=== PATIENT | male | born 1940 | race Caucasian/White ===

== ENCOUNTER 2024-02-29 14:38 | Outpatient (CLI) | payer MEDICARE, SELFPAY ==
[2024-02-29 19:42] LABS: CRP 1.5 mg/dL (<1.0)
[2024-02-29 20:09] LABS: Thyroid Stimulating Hormone 0.903 uIU/mL (0.465-4.680)
[2024-02-29 20:46] LABS: Folic Acid > 20.0 ng/mL (2.76->20)
[2024-02-29 22:08] LABS: Erythrocyte Sedimentation Rate 17 mm/hr (0-20)
[2024-03-01 11:59] LABS: Creatine Kinase 151 U/L (55-170)
[2024-03-01 12:13] LABS: SS-A 2.7 POS AI (<1.0 NEG)
[2024-03-04 14:23] LABS: Testosterone Free 2 pg/mL (30.0-135.0); Testosterone Total 24 ng/dL (250-1100)
== END 2024-02-29 14:39 | disposition home or self-care (01) ==
PROVIDERS: PCP Internal Medicine; Visit Provider Internal Medicine
DX: G72.41 Inclusion body myositis [IBM] (principal); R53.1 Weakness; M35.03 Sjogren syndrome with myopathy
CPT/HCPCS: 36415; 82550; 82607; 82746; 84402; 84403; 84443; 85652; 86038; 86039; 86140; 86235

== ENCOUNTER 2024-02-29 14:53 | Outpatient (CLI) | payer MEDICARE, SELFPAY ==
--- NOTE | ~2024-02-29 | XR_ITS ---
EXAMINATION: XR chest 2V Exam Date/Time: 02/29/2024 15:07 CDT HISTORY: R06.89 - Other abnormalities of breathing Comparison: None. RESULT: Examination changed to stat status at approximately 8:20 PM. Lines, tubes, and devices: None. Lungs and pleura: Senescent/emphysematous change. Streaky bibasilar scar/atelectasis. Cardiomediastinal silhouette: Stable. Other: No acute upper abdominal finding. Moderate wedge compression deformity at T11. IMPRESSION: No acute cardiopulmonary process. Moderate wedge compression fracture at T11, of uncertain age. Reviewed, dictated and finalized at location K.
--- NOTE | ~2024-02-29 | XR_ITS ---
EXAM: XR lumbar spine min 4V DATE: 02/29/2024 15:59 HISTORY: M54.9 - Dorsalgia, unspecified . COMPARISON: None available. FINDINGS: Severe osteopenia. 5 nonrib-bearing lumbar-type vertebral bodies. Pedicles intact. Normal v ertebral body alignment. Moderate compression deformity at T11. Severe compression deformity at L1. M oderate height loss at L5 Mild compression deformity at L2 and L4. Multilevel degenerative disc disea se and facet arthropathy. Mild scoliosis. Multilevel concave endplate abnormalities as can be seen wi th osteoporosis. IMPRESSION: Osteoporosis. Lumbar scoliosis. Severe wedge compression deformity at L1. Moderate compre ssion deformity at L5. Mild anterior wedge compression deformities at L2 and L4. Reviewed, dictated and finalized at location K. IMPRESSION: Osteoporosis. Lumbar scoliosis. Severe wedge compression deformity at L1. Moderate compression deformity at L5. Mild anterior wedge compression de formities at L2 and L4.
== END 2024-02-29 14:54 ==
PROVIDERS: PCP Internal Medicine; Visit Provider Internal Medicine
DX: R06.89 Other abnormalities of breathing (principal); M54.9 Dorsalgia, unspecified; M81.0 Age-related osteoporosis without current pathological fracture; M41.9 Scoliosis, unspecified
CPT/HCPCS: 71046; 72110

== ENCOUNTER 2024-03-01 08:55 | Emergency (ER) | payer MEDICARE, SELFPAY ==
[2024-03-01] VITALS (22 sets, daily range): BP systolic 128–143; BP diastolic 73–92; PULSE 76–79; RESP 16; TEMP 36.7–36.9; O2SAT 93–98
--- NOTE | ~2024-03-01 | XR_ITS ---
XR elbow LT min 3V 03/01/2024 10:43 INDICATION: Left elbow pain after injury PROCEDURE: 4 views left elbow COMPARISON: No prior studies for comparison. FINDINGS: Fracture, dislocation or subluxation is not identified. No significant joint effusion. Oste openia. The soft tissues appear within normal limits. No foreign bodies are identified. IMPRESSION: 1: NO ACUTE BONE OR JOINT ABNORMALITY IDENTIFIED. Reviewed, dictated and finalized at location B.
--- NOTE | ~2024-03-01 | XR_ITS ---
EXAMINATION: XR ribs RT 2V w CXR 2V DATE: 03/01/2024 10:43 INDICATION: Right rib pain post fall TECHNIQUE: AP and lateral views of the chest and 3 views of the right ribs were obtained. COMPARISON: Chest radiograph dated 02/29/2024 FINDINGS: There are several anterior right-sided rib fractures which appears chronic at the fifth rib and age-i ndeterminate but likely chronic at the adjacent right sixth and seventh ribs. Callus formation about an additional chronic fracture of the lateral right 11th rib. No definitively acute rib fractures mohsen ntified. No focal airspace opacities, pulmonary edema, pleural effusion or pneumothorax. Heart size i s within normal limits for AP technique with tortuous thoracic aorta. Compression fracture at T11 com pression fracture with 50% anterior vertebral body height loss and a few additional compression fract ures in the lumbar spine which appeared most likely chronic on prior CT. IMPRESSION: 1. A few old right-sided rib fractures and age-indeterminate but likely chronic fractures of the ante rior right sixth and seventh ribs. No pneumothorax or other acute cardiopulmonary disease. 2. Likely chronic compression fractures at T11 and a few levels in the lumbar spine. See separate lum bar spine CT report for further detail. Reviewed, dictated and finalized at location A. IMPRESSION: 1. A few old right-sided rib fractures and age-indeterminate but likely chronic fractures of the anterior right sixth and seventh ribs. No pneumothorax or oth er acute cardiopulmonary disease. 2. Likely chronic compression fractures at T11 and a few levels in the lumbar s pine. See separate lumbar spine CT report for further detail.
--- NOTE | ~2024-03-01 | CT_ITS ---
CT lumbar spine wo con Ordering provider: Siomara Jaffe PA-C History: 83 years Male with . low back pain, fall . Comparison: None. Technique: CT lumbar spine without contrast. radiation reduction technique utilized. FINDINGS: VERTEBRAE: Osteopenia of the bones. Multilevel compression fractures seen involving all of the verteb rita with maximum changes seen at the level of L1 and L5. Compression fracture of T11.. Bilateral facet joint disease of the level of L3-L4 and L4-L5. DISC SPACES: Well maintained. Evaluation of the neural foramina and spinal canal are limited without intrathecal contrast. Facet degenerative disease at the level of L4-L5 and L5-S1 T12-L1: No stenosis. L1-L2: No stenosis. L2-L3: No stenosis. L3-L4: No stenosis. Mild disc bulge. L4-L5: No stenosis. Mild disc bulge with osteophytes with narrowing of the left foramen. L5-S1: No stenosis. PARASPINOUS SOFT TISSUES: Mild atheromatous disease of the abdominal aorta. Bilateral atelectatic changes versus pneumonia with minimal left pleural effusion. Healing left ninth, 10 and the 11th. Left sacroiliitis. IMPRESSION: Multilevel degenerative disc disease with disc bulges at the level of L3-L4 and L4-L5. Multilevel compression fracture most likely chronic. Reviewed, dictated and finalized at location A.
--- NOTE | ~2024-03-01 | CT_ITS ---
CT head without contrast Indication: Injury Technique: Serial scans were obtained through the brain without the administration of contrast. Dose reduction technique was used on this scan by utilizing automated exposure control and iterative recon struction technique. The dose-length product (DLP) was 681.00 mGy-cm. Findings: There is no evidence of intracranial hemorrhage, mass lesion, or acute infarct. The ventri cles and subarachnoid spaces are dilated, consistent with moderate to severe atrophy. Low attenuatio n regions are seen within the periventricular white matter bilaterally, likely representing changes f rom chronic microvascular ischemic disease. There is no evidence of edema, mass effect or midline sh ift. The visualized paranasal sinuses and mastoid air cells are clear. Impression: No intracranial hemorrhage, mass, or acute infarct. Atrophy and chronic white matter changes, as above. Reviewed, dictated and finalized at location . Impression: No intracranial hemorrhage, mass, or acute infarct. Atrophy and chronic white matter changes, as above.
--- NOTE | ~2024-03-01 | XR_ITS ---
EXAMINATION: XR wrist LT min 3V DATE: 03/01/2024 10:43 INDICATION: Left wrist pain post fall TECHNIQUE: Posteroanterior, ulnar deviation, oblique, and lateral views of the left wrist were obtain ed. COMPARISON: none FINDINGS: Diffuse osteopenia. Old fracture deformities at the left fourth and fifth metacarpal diaphyses with s ome residual palmar angulation. No acute fractures. 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 There is some chondrocalcinosis at the ulnar side of the wrist joint. There are couple small loose osteochondral bodies in the regio n of the pisotriquetral recess. There is soft tissue swelling at the ulnar side of the wrist. IMPRESSION: 1. Old healed fourth and fifth metacarpal fracture deformities. No acute osseous abnormality. 2. Polyarticular osteoarthritis at the left hand and wrist, severe at the triscaphe joint. Reviewed, dictated and finalized at location A. IMPRESSION: 1. Old healed fourth and fifth metacarpal fracture deformities. No acute osseou s abnormality. 2. Polyarticular osteoarthritis at the left hand and wrist, severe at the trisc aphe joint.
--- NOTE | ~2024-03-01 | CT_ITS ---
CT facial & cervical spine wo Ordering provider: Siomara Jaffe PA-C History: . fall, head injury . Comparison: None. Technique: Thin slice axial CT of the facial bones and cervical spine was performed without contrast. Coronal and sagittal reformatted images were also obtained. Radiation reduction technique utilized. FINDINGS: PARANASAL SINUSES: Mucosal thickening of both maxillary sinuses. BONES: No facial fracture including no nasal bone fracture. Osteoarthritic changes of the medial atlantoaxial joint. Multilevel degenerative changes of the spine . ORBITS AND SUPERFICIAL SOFT TISSUES: The optic globes and orbits are normal. Soft tissue swelling ove r the right orbit is noted suggestive of hematoma. VISUALIZED MASTOIDS: Well aerated. LIMITED VISUALIZED BRAIN PARENCHYMA: Normal. Bilateral narrowing of the intervertebral foramen at the level of C4-C5, C5-C6 and C6-C7 with root co mpression IMPRESSION: No facial fracture. No fractures seen in the visualized portion of the spine. Soft tissue swelling over the right orbit with no definitive orbital injury seen. Multilevel degenerative disc disease with intervertebral foraminal narrowing. Reviewed, dictated and finalized at location A. IMPRESSION: No facial fracture. No fractures seen in the visualized portion of the spine. Soft tissue swelling over the right orbit with no definitive orbital injury see n. Multilevel degenerative disc disease with intervertebral foraminal narrowing.
--- NOTE | ~2024-03-01 | XR_ITS ---
SINGLE AP VIEW PELVIS Ordering provider: Siomara Jaffe PA-C History: . fall/RIGHT LATERAL RIB PAIN . Comparison: None. FINDINGS: BONES: No acute fracture or dislocation. Status post fixation of the left hip HIP JOINT SPACES: Bilateral hip joint narrowing. Bony fragment or calcification is seen in the area o f the right hip which may be synovial chondromatosis. Chip fracture is less likely. SACROILIAC JOINT SPACES/LUMBAR SPINE: The sacroiliac joint spaces are normal. Mild degenerative gibson es of the visualized lower lumbar spine. PUBIC SYMPHYSIS: Normal. SOFT TISSUES: Normal. IMPRESSION: No definite acute osseous abnormality pelvis. Reviewed, dictated and finalized at location A.
--- NOTE | 2024-03-01 09:29 | ED.FALL ---
HPI - Fall General Chief Complaint: Fall Stated Complaint: head injury Time Seen by Provider: 03/01/24 09:10 Source: patient and EMS Mode of arrival: EMS Limitations: no limitations History of Present Illness HPI Narrative: This is an 83-year-old male that presents to the emergency department after a fall today with head injury. Reports he got his wheel caught on the sidewalk and fell off of the curb. He fell out of his wheelchair and hit his head. He did not lose consciousness. Reports contusion to the right forehead. Left wrist pain, right sided rib pain, and low back pain. He is not on any anticoagulation. Patient reports he is up to date on tetanus vaccination. Denies vomiting, focal numbness or weakness. Related Data Home Medications Medication Instructions Recorded Confirmed No Home Medications 02/29/24 02/29/24 Allergies Allergy/AdvReac Type Severity Reaction Status Date / Time No Known Allergies Allergy Verified 02/29/24 13:31 Review of Systems Review of Systems: CONSTITUTIONAL: Denies fever EYES: Denies new visual changes CARDIOVASCULAR: Denies chest pain RESPIRATORY: Denies dyspnea. GASTROINTESTINAL: Denies vomiting MUSCULOSKELETAL: Reports back pain, joint pain, and myalgia. NEUROLOGIC: Denies numbness, or weakness. 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 HEAD: Normocephalic. Contusion to the right forehead with superficial skin abrasion EYES: EOMI. Pupil on the right is reactive to light and appears normal. Left pupil is irregular with blood in the anterior chamber ENT: Nares clear, no rhinorrhea or epistaxis. Mucous membranes moist. Oropharynx without tonsillar hypertrophy exudate or other lesions. Bilateral TMs pearly talley non-bulging NECK: Supple. No adenopathy or masses. No midline spinal tenderness CHEST: Clear to auscultation. No respiratory distress. No wheezes rales or rhonchi HEART: Regular rate and rhythm. No murmur heard. Normal peripheral pulses. BACK: No midline thoracic spine tenderness. Tender to palpation of midline lower lumbar spine EXTREMITIES: Normal range of motion. No edema or obvious deformity. SKIN: Warm, dry, no rash. NEURO: No focal deficits. Alert and oriented x3. CN II-XII grossly intact PSYCH: Normal mood and affect Course Course Emergency Course: Patient and family updated on workup and agree with plan of care Consultations Consultation #1: Spoke with Dr. Ho about patient and workup. His platelets are actually improved. Will continue to follow-up on his blood work outpatient Date: 03/01/24 Vital Signs Vital signs: Vital Signs Temperature 98.5 F 03/01/24 08:56 Pulse Rate 79 03/01/24 08:56 Respiratory Rate 16 03/01/24 08:56 Blood Pressure 130/92 H 03/01/24 08:56 Pulse Oximetry 96 03/01/24 08:56 Oxygen Delivery Room Air 03/01/24 08:56 Temperature 98.0 F 03/01/24 10:51 Pulse Rate 76 03/01/24 10:51 Respiratory Rate 16 03/01/24 10:51 Blood Pressure 143/88 H 03/01/24 11:16 Pulse Oximetry 98 03/01/24 12:00 Oxygen Delivery Room Air 03/01/24 08:56 Procedures Laceration Laceration 1: Date: 03/01/24 Time: 09:51 Site: face Side (If applicable): right Description: flap Depth: simple, single layer Pre-repair: irrigated ====== Skin Level ====== Skin layer closed with: dermabond and steri strips
[2024-03-01 10:05] LABS: Basophils Percent Auto 0.9 % (0.2-1.2); Eosinophils Absolute Auto 0.1 K/mm3 (0-0.3); Eosinophils Percent Auto 2.3 % (0-4.4); Hematocrit 39.6 % (42.0-52.0); Immature Granulocyte Absolute 0.03 K/mm3 (0.00-0.031); Immature Granulocyte Percent A 0.9 % (0-0.5); Immature Platelet Fraction Pct 13.1 % (0.9-11.2); Lymphocytes Absolute Auto 0.93 K/mm3 (0.9-3.2); Lymphocytes Percent Auto 26.6 % (18.3-44.2); Mean Corpuscular HGB Conc 32.8 g/dl (32-36); Mean Corpuscular Volume 106.7 fl (80-100); Mean Platelet Volume 13.6 fl (7.4-10.4); Monocytes Absolute Auto 0.5 K/mm3 (0.1-0.6); Monocytes Percent Auto 14.3 % (2.6-8.5); Neutrophils Absolute Auto 1.9 K/mm3 (1.3-6.7); Red Blood Count 3.71 M/mm3 (4.6-6.20); Red Cell Distribution Width 14.7 % (11.5-14.5); White Blood Count 3.5 K/mm3 (4.5-10.0)
[2024-03-01 10:17] LABS: Alanine Aminotransferase 73 U/L (6-50); Albumin Level 2.6 g/dL (3.5-5.1); Alkaline Phosphatase 260 U/L (38-126); Anion Gap 2 mmol/L (4-12); Aspartate Amino Transferase 86 U/L (17-59); Bilirubin,Total 1.4 mg/dL (0.2-1.3); Blood Urea Nitrogen 10 mg/dL (9-20); Calcium 8.5 mg/dL (8.4-10.2); Carbon Dioxide 24 mmol/L (22-30); Chloride 108 mmol/L (98-107); Estimated CRCL calculation 119 ml/min; Estimated Glomerular Filt Rate > 60; Glucose 114 mg/dL (65-110); Potassium 3.9 mmol/L (3.4-5.0); Sodium 134 mmol/L (137-145)
[2024-03-01 10:31] LABS: Platelet Count Result 19 k/mm3 (150-375)
[2024-03-01 10:32] LABS: INR 1.1; Prothrombin Time 14.1 Seconds (11.1-14.7)
[2024-03-01 10:35] LABS: Anisocytosis 1+; Platelet Estimate Decreased (Adequate); Poikilocytosis 1+; Schistocytes None Seen
[2024-03-01] MEDS: ACETAMINOPHEN 500 MG TABLET 1000 MG PO (11:41)
== END 2024-03-01 13:07 ==
PROVIDERS: Emergency Provider Physician Assistant; PCP Internal Medicine
DX: S01.81XA Laceration without foreign body of other part of head, initial encounter (principal); S20.211A Contusion of right front wall of thorax, initial encounter; M35.03 Sjogren syndrome with myopathy; M19.032 Primary osteoarthritis, left wrist; M19.042 Primary osteoarthritis, left hand; M51.36 Other intervertebral disc degeneration, lumbar region; M48.56XA Collapsed vertebra, not elsewhere classified, lumbar region, initial encounter for fracture; M48.54XA Collapsed vertebra, not elsewhere classified, thoracic region, initial encounter for fracture; W05.0XXA Fall from non-moving wheelchair, initial encounter
CPT/HCPCS: 12011; 36415; 70450; 70486; 71046; 71100; 72125; 72131; 72170; 73080; 73110; 80053; 85025; 85055; 85610; 85730; 99284; A9270

== ENCOUNTER 2024-03-30 13:18 | Outpatient (CLI) | payer MEDICARE, SELFPAY | END 2024-03-30 13:19 | disposition home or self-care (01) | LOC: ANHAUDASC 13:19 | PROVIDERS: PCP Internal Medicine; Visit Provider Internal Medicine | DX: Z01.10 Encounter for examination of ears and hearing without abnormal findings (principal); H90.3 Sensorineural hearing loss, bilateral | CPT/HCPCS: 92557; 92567 ==

== ENCOUNTER 2024-04-05 23:06 | Inpatient (IN) | payer MEDICARE, SELFPAY ==
--- NOTE | ~2024-04-05 | XR_ITS ---
MODIFIED ESOPHAGRAM HISTORY: Dysphagia. TECHNIQUE: Modified barium esophagram was performed on 04/06/2024. I administered fluoroscopy and perf ormed the exam with speech pathologist. Patient was seated for lateral fluoroscopic imaging for danielle stion of thin liquids, pudding, solids and quantified amounts, followed by thin liquids in uncontroll ed amounts. This was recorded on tape. A single fluoroscopic spot image was also recorded. The DAP fo r this procedure was 1.03 Gycm2. The amount of fluoroscopy time used during this procedure was 1.6 mi nutes. FINDINGS: Oral stage: Adequate function. Pharyngeal stage: Mild pharyngeal dysphagia with reduced laryngeal elevation and small amount of claudine ngeal penetration without aspiration with uncontrolled thin liquids. Cervical/esophageal stage: Adequate function. IMPRESSION: Mild pharyngeal dysphagia with small amount of laryngeal penetration without aspiration w ith uncontrolled thin liquids. Please correlate with speech pathologist findings and specific feedin g recommendations. Reviewed, dictated and finalized at location A. IMPRESSION: Mild pharyngeal dysphagia with small amount of laryngeal penetratio n without aspiration with uncontrolled thin liquids. Please correlate with spe ech pathologist findings and specific feeding recommendations.
--- NOTE | ~2024-04-05 | CT_ITS ---
Clinical Indication: Pulmonary embolus CT Scan of the Chest with Contrast: Technique: Contiguous sections were acquired throughout the chest after intravenous administration of 100 cc of Omnipaque 350. Dose reduction technique was used on this scan by utilizing automated expos ure control and iterative reconstruction technique. The dose-length product (DLP) was 1152.79 mGy-cm. Findings: There is no evidence of any significant mediastinal, hilar or axillary lymphadenopathy. There is no f illing defect in the pulmonary arterial tree to suggest pulmonary embolus. There is no evidence of ao rtic dissection or aneurysm. No pericardial effusion. Small bilateral pleural effusions are present, with mild bibasilar atelectatic change. Images through the upper abdomen reveal no abnormalities. There are compression fractures of T8, L1, and L3, and probably L4. Impression: No evidence of pulmonary embolus, aortic dissection, or aortic aneurysm. Small bilateral pleural effusions with bibasilar atelectatic change. Compression fractures, as above, age-indeterminate, likely chronic. Reviewed, dictated and finalized at [facility]. Impression: No evidence of pulmonary embolus, aortic dissection, or aortic aneurysm. Small bilateral pleural effusions with bibasilar atelectatic change. Compression fractures, as above, age-indeterminate, likely chronic.
--- NOTE | ~2024-04-05 | US_ITS ---
Right upper quadrant ABDOMINAL ULTRASOUND Ordering provider: Lul Zamudio MD History: . elevated LFTs . Comparison: None. FINDINGS: LIVER: Normal size with slightly heterogenous echotexture. Minimal lobulation of the liver surface is possible. Cirrhotic changes cannot be excluded No focal hepatic lesions or perihepatic fluid collect ions are identified. GALLBLADDER: Unremarkable. No evidence for stones, sludge, gallbladder wall thickening or pericholecy stic fluid collections. The wall thickness is 0.3 cm. A negative sonographic Cohen's sign was noted. BILIARY DUCTS: No evidence for intra or extrahepatic biliary dilation. Common bile duct measures 4 mm in diameter which is within normal limits. PANCREAS: Not well demonstrated. UPPER ABDOMINAL AORTA: Normal in caliber. Measures 1.7 cm. IVC: Patent. FREE FLUID: None. IMPRESSION: slightly heterogenous echotexture of the liver. Minimal lobulation of the liver surface is possible. Cirrhotic changes cannot be excluded. Otherwise, Unremarkable complete ultrasound of the right upper quadrant. Reviewed, dictated and finalized at location A. IMPRESSION: slightly heterogenous echotexture of the liver. Minimal lobulation of the live r surface is possible. Cirrhotic changes cannot be excluded. Otherwise, Unremar kable complete ultrasound of the right upper quadrant.
[2024-04-05 23:04] VITALS: BP 124/82; PULSE 76; RESP 15; TEMP 36.6; O2SAT 94
--- NOTE | 2024-04-05 23:09 | ECG_ITS ---
Test Date: 2024-04-05 23:09:15 Measurements Intervals [place] Rate: 76 P: 47 NV: 225 QRS: -28 QRSD: 130 T: 24 QT: 400 QTc: 450 Interpretive Statements SINUS RHYTHM WITH OCCASIONAL VENTRICULAR PREMATURE COMPLEXES INTRAVENTRICULAR CONDUCTION DELAY CANNOT R/O SEPTAL INFARCT, AGE INDETERMINATE ABNORMAL ECG No previous ECG available for comparison Electronically Signed On 04-06-2024 17:29:31 CDT by Robert Bsihop D.O.
--- NOTE | 2024-04-05 23:18 | PC.NURSE ---
Called [facility] at 2301. Called [facility] at 2302. Called [facility] at 2305. Jeovanny called back at 2304. Cary called back at 2305. Nya called back at 2308. Ofeliancel stemi alert at 2310. Cancel vides ems at 2316.
[2024-04-05 23:37] LABS: Basophils Percent Auto 0.7 % (0.2-1.2); Eosinophils Absolute Auto 0.1 K/mm3 (0-0.3); Eosinophils Percent Auto 1.8 % (0-4.4); Hematocrit 42.9 % (42.0-52.0); Hemoglobin 14.5 g/dL (14.0-18.0); Immature Granulocyte Absolute 0.04 K/mm3 (0.00-0.031); Immature Granulocyte Percent A 0.9 % (0-0.5); Immature Platelet Fraction Pct 11.2 % (0.9-11.2); Lymphocytes Absolute Auto 1.04 K/mm3 (0.9-3.2); Lymphocytes Percent Auto 23.4 % (18.3-44.2); Mean Corpuscular HGB Conc 33.8 g/dl (32-36); Mean Corpuscular Hemoglobin 35.1 pg (26-34); Mean Corpuscular Volume 103.9 fl (80-100); Mean Platelet Volume 11.9 fl (7.4-10.4); Monocytes Absolute Auto 0.7 K/mm3 (0.1-0.6); Monocytes Percent Auto 15.3 % (2.6-8.5); Neutrophils Absolute Auto 2.6 K/mm3 (1.3-6.7); Neutrophils Percent Auto 57.9 % (45.5-73.1); Platelet Count Result 26 k/mm3 (150-375); Red Blood Count 4.13 M/mm3 (4.6-6.20); Red Cell Distribution Width 16.6 % (11.5-14.5); White Blood Count 4.4 K/mm3 (4.5-10.0)
[2024-04-05 23:45] LABS: Lactic Acid Reflex 1.5 mmol/L (0.7-2.0)
[2024-04-05 23:46] LABS: Alanine Aminotransferase 74 U/L (6-50); Albumin Level 2.4 g/dL (3.5-5.1); Alkaline Phosphatase 232 U/L (38-126); Anion Gap 5 mmol/L (4-12); Aspartate Amino Transferase 68 U/L (17-59); Bilirubin,Total 1.4 mg/dL (0.2-1.3); Blood Urea Nitrogen 11 mg/dL (9-20); Calcium 8.4 mg/dL (8.4-10.2); Carbon Dioxide 20 mmol/L (22-30); Chloride 107 mmol/L (98-107); Estimated CRCL calculation 119 ml/min; Estimated Glomerular Filt Rate > 60; Glucose 105 mg/dL (65-110); Lipase 38 U/L (23-300); Magnesium 1.8 mg/dL (1.6-2.3); Potassium 3.7 mmol/L (3.4-5.0); Sodium 132 mmol/L (137-145)
[2024-04-05 23:47] LABS: Platelet Estimate Decreased (Adequate)
[2024-04-05 23:48] LABS: Ovalocytes 1+; Poikilocytosis 1+; Schistocytes None Seen
[2024-04-05 23:49] LABS: INR 1.1; Prothrombin Time 14.9 Seconds (11.1-14.7)
[2024-04-05 23:50] LABS: Partial Thromboplastin Time 31.8 Seconds (22.3-36.8)
[2024-04-05 23:57] LABS: NT Pro B Type Natriuretic Pept 88 pg/mL (19.9-100); Troponin I 0.031 ng/mL (0.000-0.034)
[2024-04-05 23:59] LABS: Troponin I 0.031 ng/mL (0.000-0.034)
[2024-04-06] VITALS (23 sets, daily range): BP systolic 110–148; BP diastolic 62–72; PULSE 76–103; RESP 18–28; TEMP 36.1–36.9; O2SAT 91–95; BMI 26.0
[2024-04-06 00:11] LABS: Influenza A QL RT-PCR Negative (Negative); Influenza B QL RT-PCR Negative (Negative); RSV RNA, RT-PCR Negative (Negative); SARS-CoV-2 RNA PCR Negative (Negative)
[2024-04-06 00:24] LABS: Procalcitonin 0.2 ng/mL
[2024-04-06 01:58] LABS: Appearance Urine Clear (Clear); Bilirubin Urine Negative (Negative); Blood Urine Negative (Negative); Color Urine Yellow (Yellow); Glucose Urine UA Negative (Negative); Ketones Urine Negative (Negative); Leukocyte Esterase Ur Negative LEU/UL (Negative); Nitrate Urine Negative (Negative); Protein Urine Negative (Negative); Specific Grav Ur 1.036 (1.001-1.035); pH Urine 6.5 (5.0-9.0)
[2024-04-06 02:10] LABS: Add Urine Microscopic? NO
[2024-04-06] MEDS: AZITHROMYCIN 500 MG/NS 250 ML 500 MG/250 ML BAG 250 MG IVPB (02:20)
[2024-04-06 03:12] LABS: Troponin I 0.037 ng/mL (0.000-0.034)
--- NOTE | 2024-04-06 03:36 | ED.GENADULT ---
HPI - General Adult General Chief complaint: Chest Pain Stated complaint: STEMI, chest pain Time Seen by Provider: 04/05/24 23:12 History of Present Illness HPI narrative: Patient is a 83-year-old gentleman who presents emergency department with chief complaint of chest pain. 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 Nursing and ancillary documentation was reviewed. 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 HEAD: Normocephalic, atraumatic. EYES: PERRLA and EOMI. ENT: Nares clear, no rhinorrhea or epistaxis. Mucous membranes moist. NECK: Supple. CHEST: Clear to auscultation. No respiratory distress. HEART: Regular rate and rhythm. No murmur heard. Normal peripheral pulses. ABDOMEN: Soft, nontender, nondistended, normal active bowel sounds. EXTREMITIES: Normal range of motion. No edema. SKIN: Warm, dry, no rash. NEURO: No focal deficits. Alert and oriented x3. PSYCH: Normal mood and affect. Course Vital Signs Vital signs: Vital Signs Temperature 36.6 C 04/05/24 23:04 Pulse Rate 76 04/05/24 23:04 Respiratory Rate 15 04/05/24 23:04 Blood Pressure 124/82 04/05/24 23:04 Pulse Oximetry 94 04/05/24 23:04 Oxygen Delivery Room Air 04/05/24 23:04 Temperature 36.6 C 04/05/24 23:04 Pulse Rate 78 04/06/24 02:15 Respiratory Rate 18 04/06/24 02:15 Blood Pressure 132/70 04/06/24 02:15 Pulse Oximetry 93 04/06/24 02:15 Oxygen Delivery Room Air 04/05/24 23:04 Medical Decision Making MDM Narrative Medical decision making narrative: Differential diagnosis includes ACS, STEMI, NSTEMI, pulmonary embolism, pneumonia, CTA chest showed no evidence of pulmonary embolism show evidence of multilobar pneumonia. Initial EKG showed no acute ST elevations that show nonspecific Initial troponin was negative repeat troponin 0.037 white blood cell count was 4.4 COVID flu RSV were negative procalcitonin 0.2 the The case was discussed with the hospitalist patient received further care in the inpatient setting patient was started on Rocephin and Zithromax and blood cultures were obtained. Vital Signs Vital Signs: Vital Signs Temperature 36.6 C 04/05/24 23:04 Pulse Rate 76 04/05/24 23:04 Respiratory Rate 15 04/05/24 23:04 Blood Pressure 124/82 04/05/24 23:04 Pulse Oximetry 94 04/05/24 23:04 Oxygen Delivery Room Air 04/05/24 23:04 Temperature 36.6 C 04/05/24 23:04 Pulse Rate 78 04/06/24 02:15 Respiratory Rate 18 04/06/24 02:15 Blood Pressure 132/70 04/06/24 02:15 Pulse Oximetry 93 04/06/24 02:15 Oxygen Delivery Room Air 04/05/24 23:04 Lab Data 04/05/24 23:26 04/05/24 23:26 Labs: Lab Results 04/05/24 04/05/24 04/06/24 Range/Units 23:26 23:26 01:48 WBC 4.4 L (
--- NOTE | 2024-04-06 05:07 | ADMGEN ---
0500 This patient, Murtaza Bess, was admitted to IMU Room 206-01. Patient/family oriented to hospital policies and general routines including ID bracelet, bed and alarms, visiting hours, pain management, procedures, bathroom and other care routines, personal items, smoking policy, room service/diet, and visiting hours. Information on how to activate the Rapid Response Team has been discussed. Patient/Family are encouraged to report perceived risks to care and to ask questions if they do not understand what they are told or what they should do.
[2024-04-06] MEDS: IPRATROPIUM 0.5 MG/ALBUTEROL SULFATE 2.5 MG AMPUL.NEB 3 ML INHALATION ×3 (07:08→20:05)
--- NOTE | 2024-04-06 08:32 | PM.IMHP ---
H&P: HPI History of Present Illness Date/Time: 04/06/24 08:32 Chief Complaint: Chest pain Narrative: 83yo male with Sjogrens and inclusion body myositis here for chest pain. Patient normally is either manual or electric wheelchair. He is able to feed himself. He did have a fall in September 2019 for resulting in left femur fracture that was surgically repaired when he lived in [place]. He moved to this area in February. About a week later he had a fall was seen in our emergency room. Imaging did show compression fractures patient states these are more chronic. Patient has periods of back pain chronically. He resides at [facility] and attends therapy. Yesterday afternoon, while undergoing therapy, he developed pain in the center of his back. This is a different location than he has for his chronic back pain. Pain occurred while exercising with pulling herself up and rolling on his side. The pain is pleuritic. He denies chest pain. He did not hear up popping sound or a pulling sensation in his chest or back. He has had a slight cough for the past 2 days productive clear sputum. No fever or chills. He does have dysphagia and is being followed by speech therapy. No urinary symptoms. He does have dry mouth and dry eyes felt to related to the Sjogren's syndrome. He has low platelets for the past year and was being followed in [place] for this but has not arrange follow-up here. He is not on current treatment for his myositis. Because of the new back pain, he presented to the emergency room for evaluation. In the ED, vital signs were normal. He was 94% on room air. No EKG listed. CTA chest showing no PE, dissection or aortic aneurysm but shows small pleural effusions with bibasilar atelectatic changes. Likely chronic compression fracture noted as well. Lab work up showing WBC 4400, normal Hgb with macrocytosis and platelet count 26K (prior value was 19K in February). Sodium 132, bicarb 20 and mildly elevated LFTs (but no change from February). Troponin 0.031 ->0.031->0.037. Lipase normal. BNP 88. PCT 0.2. UA clear. Influenza, RSV and COVID PCR negative. He was given Rocephin, Azithromycin and Duonebs. He was admitted for further care. 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 He tried CBD without benefit in the recent past. Lives at [facility]. Full code. He nominates his daughter and son to be the individuals would make medical decisions for him if he is unable. Smoking status: Never smoker Alcohol intake: never Substance use: never Do You Feel Safe in your Home?: Yes Lack of Transportation: No Lack of Food: Never True Current Housing: I Have Housing Concerned About Future Housing: No Difficulty Paying Gas/Electric Bills: No Difficulty Paying for Meds: No Currently Unemployed: No Education: Bachelor's Degree Difficulty w/ Childcare or Family Care: No Living arrangements: assisted living Additional living arrangements comments: [facility] Occupation/Education: retired Spiritual care concerns: No Meds Home Medications and Allergies Home Medications Medication Instructions Recorded Confirmed Type testosterone cypionate 200 mg/mL 140 mg (0.7 mL) IM WEEKL
--- NOTE | 2024-04-06 08:34 | ECG_ITS ---
Test Date: 2024-04-06 10:37:36 Measurements Intervals [place] Rate: 79 P: 41 WY: 265 QRS: -29 QRSD: 144 T: 20 QT: 385 QTc: 443 Interpretive Statements SINUS RHYTHM WITH SINUS ARRHYTHMIA WITH FIRST DEGREE AV BLOCK INTRAVENTRICULAR CONDUCTION DELAY CANNOT R/O SEPTAL INFARCT, AGE INDETERMINATE ABNORMAL ECG Compared to ECG 04/05/2024 23:09:15 NO SIGNIFICANT CHANGE Electronically Signed On 04-06-2024 17:27:05 CDT by Robert Bishop D.O.
[2024-04-06 10:56] LABS: Troponin I 0.023 ng/mL (0.000-0.034)
[2024-04-06 13:27] LABS: MRSA (PCR) NOT DETECTED (NOT DETECTE)
[2024-04-06] MEDS: metroNIDAZOLE 500 MG TABLET PO ×2 (14:57→22:29)
--- NOTE | 2024-04-06 15:26 | PCSTNOTE ---
Please refer to the Modified Barium Swallow Evaluation in the EMR.
[2024-04-07] VITALS (24 sets, daily range): BP systolic 114–142; BP diastolic 62–85; PULSE 74–108; RESP 18–24; TEMP 35.9–37; O2SAT 90–95
[2024-04-07] MEDS: AZITHROMYCIN 500 MG/NS 250 ML 500 MG/250 ML BAG 250 MG IVPB (02:19)
[2024-04-07] MEDS: IPRATROPIUM 0.5 MG/ALBUTEROL SULFATE 2.5 MG AMPUL.NEB 3 ML INHALATION ×4 (02:21→20:36)
[2024-04-07] MEDS: metroNIDAZOLE 500 MG TABLET PO ×2 (05:55→12:59)
[2024-04-07 07:18] LABS: Basophils Percent Auto 0.7 % (0.2-1.2); Eosinophils Absolute Auto 0.1 K/mm3 (0-0.3); Eosinophils Percent Auto 1.2 % (0-4.4); Hematocrit 42.1 % (42.0-52.0); Hemoglobin 14.2 g/dL (14.0-18.0); Immature Granulocyte Absolute 0.04 K/mm3 (0.00-0.031); Immature Granulocyte Percent A 0.9 % (0-0.5); Immature Platelet Fraction Pct 10.3 % (0.9-11.2); Lymphocytes Absolute Auto 0.99 K/mm3 (0.9-3.2); Lymphocytes Percent Auto 23.3 % (18.3-44.2); Mean Corpuscular HGB Conc 33.7 g/dl (32-36); Mean Corpuscular Hemoglobin 35.6 pg (26-34); Mean Corpuscular Volume 105.5 fl (80-100); Mean Platelet Volume 12.6 fl (7.4-10.4); Monocytes Absolute Auto 0.7 K/mm3 (0.1-0.6); Monocytes Percent Auto 16.7 % (2.6-8.5); Neutrophils Absolute Auto 2.4 K/mm3 (1.3-6.7); Neutrophils Percent Auto 57.2 % (45.5-73.1); Platelet Count Result 26 k/mm3 (150-375); Red Blood Count 3.99 M/mm3 (4.6-6.20); Red Cell Distribution Width 16.8 % (11.5-14.5); White Blood Count 4.2 K/mm3 (4.5-10.0)
[2024-04-07 07:25] LABS: Alanine Aminotransferase 62 U/L (6-50); Albumin Level 2.2 g/dL (3.5-5.1); Alkaline Phosphatase 167 U/L (38-126); Anion Gap 5 mmol/L (4-12); Aspartate Amino Transferase 58 U/L (17-59); Bilirubin,Total 1.2 mg/dL (0.2-1.3); Blood Urea Nitrogen 8 mg/dL (9-20); Calcium 7.9 mg/dL (8.4-10.2); Carbon Dioxide 21 mmol/L (22-30); Chloride 108 mmol/L (98-107); Estimated CRCL calculation 119 ml/min; Estimated Glomerular Filt Rate > 60; Glucose 90 mg/dL (65-110); Phosphorus 2.8 mg/dL (2.5-4.5); Sodium 134 mmol/L (137-145)
--- NOTE | 2024-04-07 08:02 | ECG_ITS ---
Test Date: 2024-04-07 08:13:58 Measurements Intervals [place] Rate: 94 P: 0 [place]: 0 QRS: -19 QRSD: 133 T: 74 QT: 372 QTc: 467 Interpretive Statements WANDERING PACEMAKER ATRIAL PREMATURE COMPLEXES INTRAVENTRICULAR CONDUCTION DELAY CANNOT R/O SEPTAL INFARCT, AGE INDETERMINATE ABNORMAL ECG Compared to ECG 04/06/2024 10:37:36 WANDERING PACEMAKER NOW PRESENT Electronically Signed On 04-07-2024 16:29:09 CDT by Robert Bishop D.O.
[2024-04-07 08:56] LABS: Hepatitis B Surface Antigen Negative (Negative)
[2024-04-07 09:01] LABS: HAV RESULT Negative (Negative); Hepatitis B Core IgM Result Negative (Negative)
[2024-04-07 09:13] LABS: Hepatitis C Virus Antibody Negative (Negative)
[2024-04-07 12:33] LABS: Creatine Kinase 162 U/L (55-170)
[2024-04-07] MEDS: ACETAMINOPHEN 325 MG TABLET 650 MG PO (14:08)
--- NOTE | 2024-04-07 16:58 | PM.IMPN ---
Progress Note: A&P Assessment and Plan (1) Acute back pain: Qualifiers: Back pain location: low back pain Back pain laterality: bilateral Sciatica presence: without sciatica Qualified Code(s): M54.50 - Low back pain, unspecified Code(s): M54.9 - Dorsalgia, unspecified Status: Acute (2) Pneumonia: Code(s): J18.9 - Pneumonia, unspecified organism Status: Acute (3) Chest pain: Code(s): R07.9 - Chest pain, unspecified Status: Acute (4) Thrombocytopenia: Code(s): D69.6 - Thrombocytopenia, unspecified Status: Acute (5) Macrocytosis: Code(s): D75.89 - Other specified diseases of blood and blood-forming organs Status: Acute (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 He denies chest pain. Troponin slightly elevated (could be related to myositis) but not felt to be clinically significant. EKG not available but ER notes states EKG showed no acute ST elevation. No PE or dissection. He has palpable back pain aftre doing exercise so suspect this is related to musculoskeletal pain. CTA chest does show small effusions and atelectasis. He was hypoxic at some point but remains on room air here. Consider either aspiration PNA and/or pneumonitis. Given the concern for aspiration, will consult ST. Also add PT/OT. Check sputum. Check urine Ag. Continue abx but cover for organisms that cause aspiration pneumonia. He allows me to discuss his care with Dr Ho (his son-in-law) and this was done. Elevated LFTs appear to be chronic. His thrombocytopenia is also chronic and appears to be better then baseline per patient. Fall precautions. Check MRSA nasal swab. Follow up on BCx results. 04/07/24 - Back pain worse after working with therapy. This may be ongoing until he can start treatment (if this would even be helpful). He has Sjogren but his Total CK is normal. Try heating pad for comfort. liver tests are better. Hepatitis panel negative. MRSA nasal swab negative. Diet resumed after speech therapy evaluation with MBS. He is at Level 6 soft and bite sized with Level 2 thickened liquids. He was advised to call and order foods that are soft and meats that are shredded. EKG showing PACs and IVCD but no evidence of AFib. Monitor. Continue to work with therapy. If has clinical improvement tomorrow, consider discharge home. Assisted living can accept him back. Discussed with family DVT prophylaxis - SCDs Code status - full Subjective Date/time seen: 04/07/24 16:58 Interval history: 83yo male with Sjogrens and inclusion body myositis here for chest pain although patient denies this and states he only having back pain. He has developed right sided upper back pain that occurred with exertion when working with therapy. He states this was similar to the pain he had on presentation. Last night, he was given pot roast and felt the food was 'sticking' in his mid chest with this sensation lasting all night and through to this morning (he was sitting up and took water this morning with benefit). he slept poorly due to this. he is also having a cough with eating and this makes the back pain worse. Exam Narrative: AF 97.5 142/85 90 20 95% RA Gen - NARD siting up in chair. Chest - bibasilar crackles, nml RR CV - irregularly irregular; tele showing sinus arrhythmias with 1st degree AVB Abd - Soft, NT/ND, +BS Back - palpable mid josh-thoracic R>L palpable pain. Ext - trace pedal edema. Neuro - weak bilateral LE. Speech is clear. Psych - normal mood and affect. Patient is pleasant and cooperative. Skin - warm and dry. Objective Data Vital Signs Vital Signs: Vital Signs - 24 hr 04/06/24 18:00 04/06/24 19:42 04/06/24 20:05 Temperature 97.6
--- NOTE | 2024-04-07 23:50 | PC.NURSE ---
This patient, Murtaza Bess, was transferred to [ 241] on 04/07/24 at 2359. Personal belongings sent with patient. Report given to [Luiz JOHNSON ]. Appropriate documentation sent with patient.
[2024-04-08] VITALS (7 sets, daily range): BP systolic 141; BP diastolic 71; PULSE 80–99; RESP 20–24; TEMP 36.4; O2SAT 90–95
[2024-04-08] MEDS: IPRATROPIUM 0.5 MG/ALBUTEROL SULFATE 2.5 MG AMPUL.NEB 3 ML INHALATION ×3 (02:50→13:46)
[2024-04-08] MEDS: AMOXICILLIN/CLAVULANATE K 875-125 MG TAB 1 TABLET PO (08:28)
[2024-04-08] MEDS: AZITHROMYCIN 250 MG TABLET PO (08:28)
[2024-04-08] MEDS: ACETAMINOPHEN 325 MG TABLET 650 MG PO (09:53)
--- NOTE | 2024-04-08 12:06 | PM.DS ---
DS: Admitting Diagnosis Discharge Date 04/08/24 Admitting Diagnosis Back pain DS: Discharge Diagnosis Discharge Diagnosis (1) Acute back pain: Qualifiers: Back pain location: low back pain Back pain laterality: bilateral Sciatica presence: without sciatica Qualified Code(s): M54.50 - Low back pain, unspecified Code(s): M54.9 - Dorsalgia, unspecified Status: Acute (2) Pneumonia: Code(s): J18.9 - Pneumonia, unspecified organism Status: Acute (3) Chest pain: Code(s): R07.9 - Chest pain, unspecified Status: Acute (4) Thrombocytopenia: Code(s): D69.6 - Thrombocytopenia, unspecified Status: Acute (5) Macrocytosis: Code(s): D75.89 - Other specified diseases of blood and blood-forming organs Status: Acute (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 Plese see H&P for details. Hospital Course: Patient presented with back pain after exercising. He denies chest pain. Troponin slightly elevated to 0.037 but not felt to be clinically significant. EKG showing normal sinus with PVCs, IVCD and possible age indeterminate septal VT. Repeat EKG showing no change. CTA chest showing no PE or dissection. He had palpable back pain on admission. He was hypoxic at some point but remained on room air here. CTA chest does show small effusions and atelectasis. Consider transient hypoxia related to incorrect reading, aspiration PNA and/or pneumonitis. Given the concern for aspiration, speech therapy was consulted. He also worked with PT/OT. He was started on antibiotics for possible PNA. BCx no growth to date. Patient allowed me to discuss his care with Dr Ho (his son-in-law) and this was done. Elevated LFTs but appear to be chronic. His thrombocytopenia is also chronic and appears to be better then baseline per patient. MRSA nasal swab was negative. Hepatitis panel negative. UA was clear. Right upper quadrant US showing a slightly heterogenous echotexture of the liver. Minimal lobulation of the liver surface is possible. Cirrhotic changes cannot be excluded. Otherwise, unremarkable complete ultrasound of the right upper quadrant. He had worsening back pain after working with therapy. Total CK was normal. Symptoms improved withe alternating between heat and ice. Liver tests improved. Diet resumed after speech therapy evaluation with MBS. He is at Level 6 soft and bite sized with Level 2 thickened liquids. He had a repeat EKG showing PACs and IVCD with wandering pacemaker but no evidence of AFib. He overall did well and was able to be discharged on 04/08/24. Status at Discharge Cognitive/behavioral status at discharge: stable Time Spent with Patient Time attestation: Total time spent providing and/or coordinating discharge services: 35 minutes Time spent: Greater than 30 minutes Exam Narrative: AF 96.7 128/75 97 20 90% RA Gen - NARD siting up in recliner Chest - mild bibasilar crackles, nml RR CV - RRR S1/S2 Abd - Soft, NT/ND, +BS Ext - no pedal edema. Neuro - weak bilateral LE. Speech is clear. Psych - normal mood and affect. Skin - warm and dry. DS: Data Data Completed and Pending Labs on day of discharge: Labs from last 24 hours 04/07/24 07:03 Total Creatine Kinase 162 Preliminary micro results at discharge 04/06/24 02:12 Blood Culture - Preliminary Blood 04/06/24 02:12 Blood Culture - Preliminary Blood Discharge Plan Discharge Attending physician on discharge: Lul Zamudio Discharging Clinician: Lul Zamudio Anticipat
[2024-04-08 14:30] LABS: SARS-CoV-2 RNA PCR Negative (Negative)
== END 2024-04-08 15:44 | DRG 551 ==
LOC: ANHED 04-06 03:41 → ANHIMU 04-06 04:44 → ANH2MED 04-08
PROVIDERS: Admitting Provider Internal Medicine; Emergency Provider Emergency Medicine; PCP Internal Medicine; Visit Provider Internal Medicine
DX: M54.6 Pain in thoracic spine (principal); J18.9 Pneumonia, unspecified organism; M35.03 Sjogren syndrome with myopathy; M54.50 Low back pain, unspecified; D69.6 Thrombocytopenia, unspecified; D75.89 Other specified diseases of blood and blood-forming organs; G72.41 Inclusion body myositis [IBM]; R13.10 Dysphagia, unspecified; H40.9 Unspecified glaucoma; Z20.822 Contact with and (suspected) exposure to COVID-19; Z11.52 Encounter for screening for COVID-19
CPT/HCPCS: 36415; 71275; 76705; 80053; 80074; 81003; 82550; 83605; 83690; 83735; 83880; 84100; 84145; 84484; 85025; 85055; 85610; 85730; 87040; 87635; 87637; 87641; 92526; 92611; 93005; 94640; 96365; 96366; 96367; 97110; 97161; 97165; 97530; 97535; 99285; A9270; G0378; J0456; J0696; Q9967

== ENCOUNTER 2024-07-20 07:31 | Outpatient (CLI) | payer MEDICARE, SELFPAY ==
--- NOTE | ~2024-07-20 | DEXA_ITS ---
Bone Density Report Name: MYRA ALEXANDER Age: 83 Sex: Male Ethnicity: White Date of : 1940 Indication: screening for osteoporosis; prior fracture; Referring Provider: SEAN WILDE Study: Bone densitometry was performed. Exam Date: July 20, 2024 Accession number: [id number] Bone Density: Region BMD T-score Z-score Classification AP Spine(L1-L4) 0.847 -2.2 -1.0 Osteopenia Femoral Neck (Right) 0.418 -3.8 -2.1 Osteoporosis Total Hip (Right) 0.582 -3.0 -1.8 Osteoporosis World Health Organization criteria for BMD impression classify patients as: Normal (T-score at or above -1.0), Osteopenia (T-score between -1.0 and -2.5), or Osteoporosis (T-score at or below -2.5). Clinical Information Provided by Patient: Have had a previous hip or vertebral fracture Has had a low trauma fracture Is being treated for osteoporosis Has used the following medications: Vitamin D Patient maximum height was 72 Drinks caffeinated beverages Impression: The patient has established osteoporosis, based on the Right Femoral Neck T-score and the existence of a prior fracture. The patient has risk factors, including: previous fracture. Discussion: It is important to ask patients whether they are taking their medications and to encourage continued and appropriate compliance with their osteoporosis therapies to reduce fracture risk. It is also important to review their risk factors and encourage appropriate calcium and vitamin D intakes, exercise, fall prevention and other lifestyle measures. Follow-Up: Consider repeating this study in 2 years to reassess this patient's status, or sooner if there is some new clinical indication. Reported by: ZEINAB on 07/20/2024 8:08:00 AM. Reviewed, dictated and finalized at location [facility]OUIE
== END 2024-07-20 07:32 | disposition home or self-care (01) ==
PROVIDERS: PCP Internal Medicine; Visit Provider Internal Medicine
DX: M81.0 Age-related osteoporosis without current pathological fracture (principal); M85.88 Other specified disorders of bone density and structure, other site
CPT/HCPCS: 77080

== ENCOUNTER 2024-08-09 08:08 | Outpatient (CLI) | payer MEDICARE, SELFPAY ==
[2024-08-09 13:26] LABS: Alanine Aminotransferase 103 U/L (6-50); Albumin Level 2.3 g/dL (3.5-5.1); Alkaline Phosphatase 209 U/L (38-126); Anion Gap 5 mmol/L (4-12); Aspartate Amino Transferase 81 U/L (17-59); Bilirubin,Total 2.4 mg/dL (0.2-1.3); Blood Urea Nitrogen 14 mg/dL (9-20); Carbon Dioxide 20 mmol/L (22-30); Chloride 106 mmol/L (98-107); Cholesterol 117 mg/dL (0-200); Estimated Glomerular Filt Rate > 60; Glucose 100 mg/dL (65-110); HDL Direct 35 mg/dL; Potassium 4.2 mmol/L (3.4-5.0); Sodium 131 mmol/L (137-145); Triglycerides 81 mg/dL (<150)
[2024-08-09 13:38] LABS: LDL Cholesterol Direct 55 mg/dL
[2024-08-09 13:41] LABS: Basophils Percent Auto 0.7 % (0.2-1.2); Eosinophils Percent Auto 0.7 % (0-4.4); Hematocrit 59.3 % (42.0-52.0); Hemoglobin 20.2 g/dL (14.0-18.0); Immature Granulocyte Absolute 0.04 K/mm3 (0.00-0.031); Immature Granulocyte Percent A 0.7 % (0-0.5); Immature Platelet Fraction Pct 14.8 % (0.9-11.2); Lymphocytes Absolute Auto 1.84 K/mm3 (0.9-3.2); Lymphocytes Percent Auto 34.1 % (18.3-44.2); Mean Corpuscular HGB Conc 34.1 g/dl (32-36); Mean Corpuscular Hemoglobin 32.6 pg (26-34); Mean Corpuscular Volume 95.6 fl (80-100); Monocytes Absolute Auto 0.8 K/mm3 (0.1-0.6); Monocytes Percent Auto 14.3 % (2.6-8.5); Neutrophils Absolute Auto 2.7 K/mm3 (1.3-6.7); Neutrophils Percent Auto 49.5 % (45.5-73.1); Red Cell Distribution Width 21.2 % (11.5-14.5); White Blood Count 5.4 K/mm3 (4.5-10.0)
[2024-08-09 14:06] LABS: Vitamin D 25 Hydroxy 64.7 ng/mL
[2024-08-09 14:17] LABS: Platelet Count Result 23 k/mm3 (150-375)
== END 2024-08-09 08:09 | disposition home or self-care (01) ==
PROVIDERS: PCP Internal Medicine; Visit Provider Internal Medicine
DX: D69.6 Thrombocytopenia, unspecified (principal); E88.09 Other disorders of plasma-protein metabolism, not elsewhere classified; R74.8 Abnormal levels of other serum enzymes; Z79.890 Hormone replacement therapy; E78.5 Hyperlipidemia, unspecified; R07.9 Chest pain, unspecified; G72.41 Inclusion body myositis [IBM]
CPT/HCPCS: 36415; 80053; 80061; 82306; 84402; 84403; 85025; 85055

== ENCOUNTER 2024-10-25 08:32 | Outpatient (CLI) | payer MEDICARE, SELFPAY ==
--- OUTSIDE RECORDS SUMMARY | 2024-10-25 08:46 | XMS_ITS | Clinical Summary ---
Author Organization [facility] Address [address] [place] [id number] Care Team Providers Care Open End Spinning Operator Name Role Phone Nikolay Ho DO Primary Care Provider [phone]- [phone] Allergies No known active allergies Medications testosterone cypionate (DEPO-TESTOTERON E) 100 mg/mL injection Inject 1.2 mL (120 mg total) into the muscle as instructed once a week Active furosemide (LASIX) 20 mg tablet Take 1 tablet (20 mg total) by mouth daily In the morning Active cyanocobalamin (Vitamin B-12) 1,000 mcg tabletIndication s:Prevention of Vitamin B12 Deficiency Take 1 tablet (1,000 mcg total) by mouth daily Active creatine monohydrate 5,000 mg powder in packet Take 5 mg by mouth daily Active Active Problems No known active problems Social History Tobacco Use Types Packs/Day Years Used Date Smoking Tobacco: Never Passive Smoke Exposure: Never Tobacco Cessation:Counseling Given: Not Answered Personal Safety Answer Date Recorded Getting School Help Needed Not on file 03/21 Sex and Gender Information Value Date Recorded Sex Assigned at Not on file Legal Sex Male 9:08 AM CDT Gender Identity Not on file Sexual Orientation Not on file Obstetrics History Last Filed Vital Signs Vital Sign Reading Time Taken Comments Blood Pressure 125/81 05/19/2024 12:41 PM CDT Pulse 101 05/19/2024 12:41 PM CDT Temperature - - Respiratory Rate - - Oxygen Saturation - - Inhaled Oxygen Concentration - - Weight 83 kg (183 lb) 05/19/2024 12:41 PM CDT Height 177.8 cm (5' 10 ) 05/19/2024 12:41 PM CDT Body Mass Index 26.26 05/19/2024 12:41 PM CDT Plan of Treatment Health Maintenance Due Date Last Done Comments Depression Screening 1940 Fall Risk Assessment 1940 Hepatitis B Screening 12/12[birth year]1959 Zoster Vaccine (1 of 2) 12/12/1991 Well Visit 65+ 2006 Influenza Vaccine (#1) 2024 8, 08/06/2017, 08/24/2013, Additional history exists DTaP/Tdap/Td Vaccine (4 - Td or Tdap) 05/19/2028 05/19/2018, 09/21/2012, 04/14/2012, Additional history exists Pneumococcal vaccine 65+ Completed 015, 09/24/2012, 08/27/2009, Additional history exists Insurance [address] [place] [address] MEDICARE [facility] Address: [facility] [address] [place] [address] [facility] [address] [place] [address] MEDICARE Care Teams Open End Spinning Operator Relationship Specialty Start Date End Date Nikolay Ho DO PCP - General Internal Medicine 03/21/24
--- OUTSIDE RECORDS SUMMARY | 2024-10-25 08:46 | XMS_ITS | Referral Summary ---
Author Organization [facility] Address [address] [place] [id number] Care Team Providers Care Rotary Cutter Feeder Name Role Phone Nikolay Ho DO Primary Care Provider +1- [phone] Allergies No known active allergies Medications testosterone [...] on file Sexual Orientation Not on file Last Filed Vital Signs Vital Sign Reading [...] 05/19/2024 12:41 PM CDT Plan of Treatment Not on file Insurance [address] [place] [address] MEDICARE [facility] [address] [place] [id number] MEDICARE Care Teams Rotary Cutter Feeder Relationship Specialty Start Date End Date Nikolay Ho DO PCP - General Internal Medicine 03/21/24
[2024-10-25 12:29] LABS: Basophils Percent Auto 0.7 % (0.2-1.2); Eosinophils Absolute Auto 0.1 K/mm3 (0-0.3); Eosinophils Percent Auto 2.2 % (0-4.4); Hematocrit 49.5 % (42.0-52.0); Hemoglobin 17.4 g/dL (14.0-18.0); Immature Granulocyte Absolute 0.02 K/mm3 (0.00-0.031); Immature Granulocyte Percent A 0.5 % (0-0.5); Immature Platelet Fraction Pct 10.4 % (0.9-11.2); Lymphocytes Percent Auto 42.4 % (18.3-44.2); Mean Corpuscular HGB Conc 35.2 g/dl (32-36); Mean Corpuscular Hemoglobin 34.1 pg (26-34); Mean Corpuscular Volume 97.1 fl (80-100); Mean Platelet Volume 11.9 fl (7.4-10.4); Monocytes Absolute Auto 0.6 K/mm3 (0.1-0.6); Neutrophils Absolute Auto 1.6 K/mm3 (1.3-6.7); Neutrophils Percent Auto 40.2 % (45.5-73.1); Platelet Count Result 30 k/mm3 (150-375); Red Cell Distribution Width 16.5 % (11.5-14.5)
[2024-10-25 12:38] LABS: Prothrombin Time 13.7 Seconds (11.1-14.7)
[2024-10-25 13:02] LABS: Anisocytosis 1+; Platelet Estimate Decreased (Adequate); Schistocytes None Seen; Smudge Cells FEW
[2024-10-25 16:42] LABS: Alanine Aminotransferase 152 U/L (6-50); Albumin Level 2.5 g/dL (3.5-5.1); Alkaline Phosphatase 365 U/L (38-126); Anion Gap 3 mmol/L (4-12); Aspartate Amino Transferase 114 U/L (17-59); Blood Urea Nitrogen 16 mg/dL (9-20); Calcium 8.4 mg/dL (8.4-10.2); Carbon Dioxide 25 mmol/L (22-30); Chloride 106 mmol/L (98-107); Estimated Glomerular Filt Rate > 60; Glucose 96 mg/dL (65-110); Potassium 4.2 mmol/L (3.4-5.0); Sodium 134 mmol/L (137-145)
[2024-10-25 21:40] LABS: Hemoglobin A1C 5.9 % (<5.7)
== END 2024-10-25 08:33 | disposition home or self-care (01) ==
LOC: ANHGOSHLAB 08:34
PROVIDERS: PCP Internal Medicine; Visit Provider Internal Medicine
DX: D69.6 Thrombocytopenia, unspecified (principal); R74.8 Abnormal levels of other serum enzymes; G72.41 Inclusion body myositis [IBM]; M35.03 Sjogren syndrome with myopathy; R73.9 Hyperglycemia, unspecified
CPT/HCPCS: 36415; 80053; 82104; 82728; 83036; 84075; 84080; 85025; 85055; 85610

== ENCOUNTER 2025-02-27 13:50 | Outpatient (CLI) | payer MEDICARE, SELFPAY ==
--- OUTSIDE RECORDS SUMMARY | 2025-02-27 15:05 | XMS_ITS | Referral Summary ---
Author Organization [facility] Address [address] [place] [id number] Care Team Providers Care Provider Relations Consultant Name Role Phone Nikoaly Ho DO Primary Care Provider +1- [phone] Encounters Date Type Department Care Team Description 01/30/2025 3:22 PM CDT - 01/30/2025 11:59 PM CDT Hospital Encounter [facility] [address] [place] [address] Discharge Disposition: Discharge to home or self care 01/30/2025 3:20 PM CDT - 01/30/2025 11:59 PM CDT Hospital Encounter [facility]) [address] [place] [address] Discharge Disposition: Discharge to home or self care 01/30/2025 3:19 PM CDT - 01/30/2025 11:59 PM CDT Hospital Encounter [facility]) [address] [place] [address] Discharge Disposition: Discharge to home or self care 01/24/2025 4:20 PM CDT Office Visit [facility] Otol[facility]ology [facility] [place] [address] Shailesh Williamson MD Sensorineural hearing loss (SNHL) of both ears (Primary Dx) 01/24/2025 3:04 PM CDT - 01/24/2025 11:59 PM CDT Hospital Encounter [facility] [address] [place] [address] Shailesh Williamson MD Sensory hearing loss, bilateral Discharge Disposition: Discharge to home or self care 01/02/2025 Orders Only [facility] Otolaryngology [address] [facility], [address] [place] [phone] Christine Fraga CMA Sensory hearing loss, bilateral (Primary Dx) 01/02/2025 1:00 PM CDT Procedure visit [facility] Otolaryngology [address] [facility], [address] [place] [address] Jessica Kirkpatrick CCC-Dave Sensorineural hearing loss, bilateral (Primary Dx) 12/07/2024 Documentation [facility] Neuro Muscle [address] [facility] 6th [place] [address] [place] [phone] Jessica Thomson, JUSTIN 12/07/2024 8:15 AM CDT Office Visit [facility] Neuro Muscle [address] [facility] 7th [place] [address] Christian Prado MD PhD Inclusion body myositis (IBM) (HCC) (Primary Dx) from Last 3 Months Allergies No known active allergies Medications testosterone [...] Take 5 mg by mouth daily Active potassium chloride (KAYCIEL) solution 20 mEq/15 mL Take 15 mL (20 mEq total) by mouth daily 4 Active Active Problems Problem Noted Date Diagnosed Date Sensorineural hearing loss (SNHL) of both ears 0 01/24/2025 Immunizations Immunization Administration Dates Next Due Pneumococcal Conjugate PCV 13 08/24/2015 Social History Tobacco Use Types Packs/Day Years Used Date Smoking Tobacco: Never Passive Smoke Exposure: Never Tobacco Cessation:Counseling Given: Not Answered Sex and Gender Information Value Date Recorded Sex Assigned at Not on file Legal Sex Male 9:08 AM CDT Gender Identity Not on file Sexual Orientation Not on file Last Filed Vital Signs Vital Sign Reading Time Taken Comments Blood Pressure 117/74 12/07/2024 8:09 AM CDT Pulse 87 12/07/2024 8:09 AM CDT Temperature - - Respiratory Rate - - Oxygen Saturation - - Inhaled Oxygen Concentration - - Weight 75.8 kg (167 lb) 12/07/2024 8:09 AM CDT Height 177.8 cm (5' 10) 12/07/2024 8:09 AM CDT Body Mass Index 23.96 12/07/2024 8:09 AM CDT Plan of Treatment Upcoming Encounters Date Type Department Care Team (Latest Contact Info) Description 05/17/2025 7:30 AM CDT Hospital Encounter [facility] Operating Room [address] [place] [phone] Shailesh Williamson MD [address] [address] 05/17/2025 7:30 AM CDT - 05/17/2025 9:45 AM CDT Surgery [facility] Operating Room [address] [place] [phone] Shailesh Williamson MD [address] [address] Implantation Right Cochlear Device [46688 (CPT )] Scheduled Procedures Name Priority Associated Diagnoses Date/Ti me IMPLANTATION COCHLEAR DEVICE UNILATERAL. Sensorineural hearing loss (SNHL) of both ears 05/17/2025 7:30 AM CDT Procedures Procedure Name Priority Date/Time Associated Diagnosis Comments NEURO MR OUTSIDE REFERENCE Routine 01/30/2025 3:22 PM CDT NEURO MR OUTSIDE REFERENCE Routine 01/30/2025 3:20 PM CDT NEURO MR OUTSIDE REFERENCE Routine 01/30/2025 3:[address] TEMPORAL BONES WO CONTRAST Schedule Routine, Read Routine (OP Routine) 01/24/2025 3:28 PM CDT Sensory hearing loss, bilateral AUDBASE RESULTS 01/02/2025 12:51 PM CDT from Last 3 Months Results * Neuro MR Outside Reference (01/30/2025 3:22 PM CDT) Impressions [facility] - 01/30/2025 3:22 PM CDT These images are for Reference purposes only and have not been reviewed by [facility]. There will be no report generated by a [facility] Radiologist. Narrative [facility] - 01/30/2025 3:22 PM CDT EXAMINATION: Images For Reference Purposes Only Shailesh Williamson MD [facility] MRI PROCEDURES Final R esult Performing Organization Address [facility] Co de Phone Number [email or web address] * Neuro MR Outside Reference (01/30/2025 3:20 PM CDT) Impressions [facility] - 01/30/2025 3:20 PM CDT These images are for Reference purposes only and have not been reviewed by [facility]. There will be no report generated by a [facility] Radiologist. Narrative [facility] - 01/30/2025 3:20 PM CDT EXAMINATION: Images For Reference Purposes Only Shailesh Williamson MD IM MRI PROCEDURES Final R esult [email or web address] * Neuro MR Outside Reference (01/30/2025 3:19 PM CDT) Impressions [facility] - 01/30/2025 3:19 PM CDT These images are for Reference purposes only and have not been reviewed by [facility]. There will be no report generated by a [facility] Radiologist. Narrative [facility] - 01/30/2025 3:19 PM CDT EXAMINATION: Images For Reference Purposes Only us Shailesh Williamson MD IMG MRI PROCEDURES Final R esult [facility] * CT Temporal Bones WO Contrast (01/24/2025 3:28 PM CDT) Anatomical Region Laterality Modality Head and Neck N/A Computed Tomogra phy 01/24/2025 4:25 PM CDT Impressions 01/24/2025 4:[address] examination of the right temporal bones without imaging evidence to explain the patient's symptoms. Likely enlarged left vestibular aqueduct Electronically signed by: Sam Birmingham MD, PHD Narrative 01/24/2025 4:25 PM CDT EXAMINATION: CT of the temporal bones without contrast HISTORY: Hearing loss TECHNIQUE: CT of the temporal bones was performed according to the standard protocol without intravenous contrast. COMPARISON: None Available. FINDINGS: RIGHT temporal bone: External ear: External auditory canal is unremarkable without evidence of atresia, stenosis or soft tissue. Visualized tympanic membrane is intact and unremarkable. Scutum is sharp. Middle ear: Epitympanum, mesotympanum and hypotympanum are free of soft tissue or fluid. Ossicles are intact and in normal alignment. Tegmen tympani is pneumatized and intact. Sinus tympani and facial recess are free of soft tissue or fluid. Oval and round windows are patent. Inner ear: 2-1/2 turns to the cochlea without congenital cochlear malformations. Vestibule and semicircular canals are unremarkable without evidence of dehiscence. Vestibular and cochlear aqueducts are of normal caliber. No evidence of labyrinthitis ossificans or otospongiosis. Internal auditory canal is unremarkable. Labyrinthine, tympanic and mastoid segments of the facial nerve are unremarkable and follow a normal anatomic course. No dehiscence of the tympanic segment. Mastoid and Periauricular spaces: Mastoid air cells are pneumatized and entirely aerated. Tegmen mastoideum is intact. Pre and post-auricular soft tissues are normal. Carotid and jugular vascular channels are intact and follow a normal anatomic course. LEFT temporal bone: External ear: External auditory canal is unremarkable without evidence of atresia, stenosis or soft tissue. Visualized tympanic membrane is intact and unremarkable. Scutum is sharp. Middle ear: Epitympanum, mesotympanum and hypotympanum are free of soft tissue or fluid. Ossicles are intact and in normal alignment. Tegmen tympani is pneumatized and intact. Sinus tympani and facial recess are free of soft tissue or fluid. Oval and round windows are patent. Inner ear: 2-1/2 turns to the cochlea without congenital cochlear malformations. Vestibule and semicircular canals are unremarkable without evidence of dehiscence. Vestibular and cochlear aqueducts are of normal caliber. No evidence of labyrinthitis ossificans or otospongiosis. Internal auditory canal is unremarkable. Labyrinthine, tympanic and mastoid segments of the facial nerve are unremarkable and follow a normal anatomic course. No dehiscence of the tympanic segment. Mastoid and Periauricular spaces: Mastoid air cells are pneumatized and entirely aerated. Tegmen mastoideum is intact. Pre and post-auricular soft tissues are normal. Carotid and jugular vascular channels are intact and follow a normal anatomic course. Other findings: Visualized intracranial contents, orbits, paranasal sinuses, nasopharynx are unremarkable. Procedure Note Sam Birmingham MD PhD - 01/24/2025 EXAMINATION: CT of the temporal bones without contrast HISTORY: Hearing loss TECHNIQUE: CT of the temporal bones was performed according to the standard protocol without intravenous contrast. COMPARISON: None Available. FINDINGS: RIGHT temporal bone: External ear: External auditory canal is unremarkable without evidence of atresia, stenosis or soft tissue. Visualized tympanic membrane is intact and unremarkable. Scutum is sharp. Middle ear: Epitympanum, mesotympanum and hypotympanum are free of soft tissue or fluid. Ossicles are intact and in normal alignment. Tegmen tympani is pneumatized and intact. Sinus tympani and facial recess are free of soft tissue or fluid. Oval and round windows are patent. Inner ear: 2-1/2 turns to the cochlea without congenital cochlear malformations. Vestibule and semicircular canals are unremarkable without evidence of dehiscence. Vestibular and cochlear aqueducts are of normal caliber. No evidence of labyrinthitis ossificans or otospongiosis. Internal auditory canal is unremarkable. Labyrinthine, tympanic and mastoid segments of the facial nerve are unremarkable and follow a normal anatomic course. No dehiscence of the tympanic segment. Mastoid and Periauricular spaces: Mastoid air cells are pneumatized and entirely aerated. Tegmen mastoideum is intact. Pre and post-auricular soft tissues are normal. Carotid and jugular vascular channels are intact and follow a normal anatomic course. LEFT temporal bone: External ear: External auditory canal is unremarkable without evidence of atresia, stenosis or soft tissue. Visualized tympanic membrane is intact and unremarkable. Scutum is sharp. Middle ear: Epitympanum, mesotympanum and hypotympanum are free of soft tissue or fluid. Ossicles are intact and in normal alignment. Tegmen tympani is pneumatized and intact. Sinus tympani and facial recess are free of soft tissue or fluid. Oval and round windows are patent. Inner ear: 2-1/2 turns to the cochlea without congenital cochlear malformations. Vestibule and semicircular canals are unremarkable without evidence of dehiscence. Vestibular and cochlear aqueducts are of normal caliber. No evidence of labyrinthitis ossificans or otospongiosis. Internal auditory canal is unremarkable. Labyrinthine, tympanic and mastoid segments of the facial nerve are unremarkable and follow a normal anatomic course. No dehiscence of the tympanic segment. Mastoid and Periauricular spaces: Mastoid air cells are pneumatized and entirely aerated. Tegmen mastoideum is intact. Pre and post-auricular soft tissues are normal. Carotid and jugular vascular channels are intact and follow a normal anatomic course. Other findings: Visualized intracranial contents, orbits, paranasal sinuses, nasopharynx are unremarkable. IMPRESSION: Unremarkable CT examination of the right temporal bones without imaging evidence to explain the patient's symptoms. Likely enlarged left vestibular aqueduct Electronically signed by: Sam Birmingham MD, PHD us Shailesh Williamson MD IMG CT PROCEDURES Final Re sult * AudBase Results (01/02/2025 12:51 PM CDT) Provider Scanning AUDIOLOGY SERVICES ORDERABLES Final Result from Last 3 Months Insurance MEDICARE [facility] [address] [place] [phone] MEDICARE [facility] Care Teams Provider Relations Consultant Relationship Specialty Start Date End Date Nikolay Ho DO PCP - General Internal Medicine 03/21/24
--- OUTSIDE RECORDS SUMMARY | 2025-02-27 15:05 | XMS_ITS | Clinical Summary ---
Author Organization [facility] Address [address] [place] [address] Care Team Providers Care Manager Diabetes Name Role Phone Nikolay Ho DO Primary Care Provider +1- [phone] Allergies No known active allergies Medications testosterone [...] loss (SNHL) of both ears 0 01/24/2025 Encounters Date Type Department Care Team Description 01/30/2025 3:22 PM CDT - 01/30/2025 11:59 PM CDT Hospital Encounter [facility]) [address] [place] [phone] Discharge Disposition: Discharge to home or self care 01/30/2025 3:20 PM CDT - 01/30/2025 11:59 PM CDT Hospital Encounter [facility] [address] [place] [address] [place] [address] Discharge Disposition: Discharge to home or self care 01/30/2025 3:19 PM CDT - 01/30/2025 11:59 PM CDT Hospital Encounter [facility] [address] [place] [address] Discharge Disposition: Discharge to home or self care 01/24/2025 4:20 PM CDT Office Visit [facility]ology [address] [place] [address] Shailesh Williamson MD Sensorineural hearing loss (SNHL) of both ears (Primary Dx) 01/24/2025 3:04 PM CDT - 01/24/2025 11:59 PM CDT Hospital Encounter [facility] Imaging [address] [place] [address] Shailesh Williamson MD Sensory hearing loss, bilateral Discharge Disposition: Discharge to home or self care 01/02/2025 1:00 PM CDT Procedure visit [facility] [place] [address] eJssica Kirkpatrick CCC-Dave Sensorineural hearing loss, bilateral (Primary Dx) 01/02/2025 Orders Only [facility] Otolaryngology [address] [place] [address], [address] [place] [address] Christine Fraga CMA Sensory hearing loss, bilateral (Primary Dx) 12/07/2024 8:15 AM CDT Office Visit [facility] Neuro Muscle [address] [facility] 7th [place] [address] Christian Prado MD PhD Inclusion body myositis (IBM) (HCC) (Primary Dx) 12/07/2024 Documentation [facility] Neuro Muscle [address] [facility] 6th [place] [address] [place] [address] Jessica Thomson, PT from Last 3 Months Immunizations Immunization Administration Dates Next Due Pneumococcal Conjugate PCV 13 08/24/2015 Medical History Medical History Date Comments Autoimmune disease Osteoporosis Social History Tobacco Use Types Packs/Day Years [...] Description 05/17/2025 7:30 AM CDT Hospital Encounter [facility] Operating Room [address] [place] [phone] Shailesh Williamson MD [address] [id number] 05/17/2025 7:30 AM CDT - 05/17/2025 9:45 AM CDT Surgery [facility] Operating Room [address] [place] [phone] Shailesh Williamson MD [address] [address] Implantation Right Cochlear Device [84029 (CPT )] Scheduled Procedures Name Priority Associated Diagnoses Date/Ti me IMPLANTATION COCHLEAR DEVICE UNILATERAL. Sensorineural hearing loss (SNHL) of both ears 05/17/2025 7:30 AM CDT Health Maintenance Due Date Last Done Comments Depression Screening 1941 Fall Risk Assessment 1940 Hepatitis B Screening 12/12[birth year]1959 Zoster Vaccine (1 of 2) 12/12/1991 Well Visit 65+ 2006 Influenza Vaccine (Season Ended) 2025 10/22/2017, 08/06/2017, 08/24/2013, Additional history exists DTaP/Tdap/Td Vaccine (4 - Td or Tdap) 05/19/2028 05/19/2018, 09/21/2012, 04/14/2012, Additional history exists Pneumococcal vaccine 65+ Completed 015, 09/24/2012, 08/27/2009, Additional history exists Procedures Procedure Name Priority Date/Time Associated Diagnosis [...] Outside Reference (01/30/2025 3:22 PM CDT) Impressions [facility] - 01/30/2025 3:22 PM CDT These images are for Reference purposes only and have not been reviewed by [facility]. There will be no report generated by a [facility] Radiologist. Narrative [facility] - 01/30/2025 3:22 PM CDT EXAMINATION: Images For Reference Purposes Only us Shailesh Williamson MD IMG MRI PROCEDURES Final R esult [email or web address] * Neuro MR Outside Reference (01/30/2025 3:20 PM CDT) Impressions [facility] - 01/30/2025 3:20 PM CDT These images are for Reference purposes only and have not been reviewed by [facility]. There will be no report generated by a [facility] Radiologist. Narrative [facility] - 01/30/2025 3:20 PM CDT EXAMINATION: Images For Reference Purposes Only Shailesh Williamson MD IM MRI PROCEDURES Final R esult Performing Organization Address [facility] Co de Phone Number [email or web address] * Neuro MR Outside Reference (01/30/2025 3:19 PM CDT) Impressions [facility] - 01/30/2025 3:19 PM CDT These images are for Reference purposes only and have not been reviewed by [facility]. There will be no report generated by a [facility] Radiologist. Narrative [facility] - 01/30/2025 3:19 PM CDT EXAMINATION: Images For Reference Purposes Only Shailesh Williamson MD [facility] MRI PROCEDURES Final R esult Performing Organization Address [facility] Co de Phone Number [email or web address] * CT Temporal Bones WO Contrast [...] Procedure Note Sam Birmingham MD PhD - 05/06/2025 EXAMINATION: CT of the temporal bones without [...] * AudBase Results (01/02/2025 12:51 PM CDT) us Provider Scanning AUDIOLOGY SERVICES ORDERABLES Final Result from Last 3 Months Insurance [address] [place] [address] [address] [facility] [address] [place] [address] MEDICARE [facility] Care Teams Manager Diabetes Relationship Specialty Start Date End Date Nikolay Ho DO PCP - General Internal Medicine 03/21/24
[2025-02-27 15:26] LABS: Basophils Percent Auto 0.6 % (0.2-1.2); Eosinophils Absolute Auto 0.1 K/mm3 (0-0.3); Eosinophils Percent Auto 1.4 % (0-4.4); Hematocrit 56.5 % (42.0-52.0); Hemoglobin 19.8 g/dL (14.0-18.0); Immature Granulocyte Absolute 0.02 K/mm3 (0.00-0.031); Immature Granulocyte Percent A 0.4 % (0-0.5); Immature Platelet Fraction Pct 12.3 % (0.9-11.2); Lymphocytes Absolute Auto 1.87 K/mm3 (0.9-3.2); Lymphocytes Percent Auto 38.2 % (18.3-44.2); Mean Corpuscular Hemoglobin 34.9 pg (26-34); Mean Corpuscular Volume 99.6 fl (80-100); Mean Platelet Volume 11.2 fl (7.4-10.4); Monocytes Absolute Auto 0.6 K/mm3 (0.1-0.6); Monocytes Percent Auto 12.9 % (2.6-8.5); Neutrophils Absolute Auto 2.3 K/mm3 (1.3-6.7); Neutrophils Percent Auto 46.5 % (45.5-73.1); Red Blood Count 5.67 M/mm3 (4.6-6.20); Red Cell Distribution Width 14.8 % (11.5-14.5); White Blood Count 4.9 K/mm3 (4.5-10.0)
--- NOTE | 2025-02-27 15:34 | P.PCNPFT_ITS ---
PFT Procedure Performed PFT Procedure Performed Diffusing Cap (DLCO) Flow Vol Loop Spirometry w/o Bronchodil PFT Interpretation This is a pulmonary function test with spirometry, plethysmography and diffusing capacity. The test was performed and results interpreted in accordance with the 2019 and 2005 ATS/ERS Task Force guidelines respectively using the Global Lung Function Initiative-2012 reference equations. Patient demonstrated good effort and cooperation. Reproducibility criteria were met. The quality of the spirometry maneuver was Grade A. of note, patient is unable to do lung volumes due to lack of mobility and unable to ambulate to body box. Findings: Spirometry: There is decreased maximal expiratory airflow at low lung volumes with concave expiratory flow tracing. The contour the inspiratory flow tracing is normal. The FVC is 2.56 L, 63% predicted. The FEV1 is 1.67 L, 56% predicte d. The FEV1: FVC ratio 65%. Diffusing capacity: The diffusing capacity unadjusted for hemoglobin and carboxyhemoglobin is 6.9, 29% predicted. The diffusing capacity adjusted for alveolar volume is 2.12, 62% predicted. 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 The diffusing capacity unadjusted for hemoglobin and carboxyhemoglobin is severely decreased and remains mildly decreased when adjusted for alveolar volume. The lung volumes were not measured so a concurrent restrictive ventilatory abnormality cannot be excluded. There are no prior studies for comparison
[2025-02-27 15:36] LABS: Alanine Aminotransferase 157 U/L (6-50); Alkaline Phosphatase 295 U/L (38-126); Anion Gap 3 mmol/L (4-12); Aspartate Amino Transferase 117 U/L (17-59); Bilirubin,Total 2.1 mg/dL (0.2-1.3); Blood Urea Nitrogen 18 mg/dL (9-20); Calcium 8.8 mg/dL (8.4-10.2); Carbon Dioxide 27 mmol/L (22-30); Chloride 103 mmol/L (98-107); Estimated Glomerular Filt Rate > 60; Glucose 96 mg/dL (65-110); Potassium 4.8 mmol/L (3.4-5.0); Sodium 133 mmol/L (137-145); Total Protein 6.1 g/dL (6.3-8.2)
[2025-02-27 15:45] LABS: Hemoglobin A1C 5.5 % (<5.7)
[2025-02-27 15:49] LABS: Platelet Count Result 24 k/mm3 (150-375)
[2025-02-27 15:50] LABS: Platelet Estimate Decreased (Adequate); Schistocytes None Seen
[2025-02-27 16:02] LABS: Iron 215 ug/dL (49-181)
[2025-02-27 16:12] LABS: Percent Iron Saturation 86 % (20-50)
== END 2025-02-27 13:51 | disposition home or self-care (01) ==
PROVIDERS: PCP Internal Medicine; Visit Provider Internal Medicine
DX: D69.6 Thrombocytopenia, unspecified (principal); R74.8 Abnormal levels of other serum enzymes; E88.09 Other disorders of plasma-protein metabolism, not elsewhere classified; M35.03 Sjogren syndrome with myopathy; G72.41 Inclusion body myositis [IBM]; R73.9 Hyperglycemia, unspecified; J96.11 Chronic respiratory failure with hypoxia; R94.2 Abnormal results of pulmonary function studies
CPT/HCPCS: 36415; 80053; 82728; 83036; 83540; 83550; 85025; 85055; 94375; 94729

== ENCOUNTER 2025-04-19 08:05 | Outpatient (CLI) | payer MEDICARE, SELFPAY ==
--- NOTE | ~2025-04-19 | XR_ITS ---
XR chest 2V 04/19/2025 08:34 Indication: Chronic respiratory failure with hypoxia Procedure: 2 view chest Comparison: 09/26/2024 Findings: There is a sclerotic burst fracture midthoracic spine, suspicious for pathologic fracture. Correlate for history of malignancy. There are multiple additional lower thoracic and upper lumbar co mpression fractures, likely chronic. Bibasilar atelectasis/scarring. Shallow inspiration. No focal pn eumonia, edema or effusion. No pneumothorax. Impression: 1: Bibasilar infiltrates, most likely atelectasis/scarring. 2: Chronic burst fracture mid thoracic spine, suspicious for pathologic fracture. Consider metastatic disease. Correlate for history of malignancy. Reviewed, dictated and finalized at location B. Impression: 1: Bibasilar infiltrates, most likely atelectasis/scarring. 2: Chronic burst fracture mid thoracic spine, suspicious for pathologic fractur e. Consider metastatic disease. Correlate for history of malignancy.
--- NOTE | ~2025-04-19 | US_ITS ---
Limited Abdominal Sonogram: Real-time sonographic imaging of the right upper quadrant was performed. Clinical History: Abnormal serum enzyme levels Findings: The liver appears normal with no evidence of mass lesion or bile duct dilatation. Main por yanely vein demonstrates normal direction of flow. The gallbladder is well distended, and appears normal with no evidence of gallstone or wall thickening. The common bile duct measures 5 mm. The visualize d pancreas, aorta, and IVC are unremarkable. Impression: No significant abnormality seen. Reviewed, dictated and finalized at location M. Impression: No significant abnormality seen.
--- OUTSIDE RECORDS SUMMARY | 2025-04-19 08:17 | XMS_ITS | Clinical Summary ---
Author Organization [facility] Address [address] [place] [id number] Care Team Providers Care Engineering Professor Name Role Phone Nikolay Ho DO Primary Care Provider +1- [phone] Allergies No known active allergies Medications testosterone [...] - 01/30/2025 11:59 PM CDT Hospital Encounter [facility] [address] [place] [address] Discharge Disposition: Discharge to home or self care 01/30/2025 3:20 PM CDT - 01/30/2025 11:59 PM CDT Hospital Encounter [facility]) [address] [place] [address] [place] [address] Discharge Disposition: Discharge to home or self care 01/30/2025 3:19 PM CDT - 01/30/2025 11:59 PM CDT Hospital Encounter [facility] [address] [place] [address] Discharge Disposition: Discharge to home or self care 01/24/2025 4:20 PM CDT Office Visit [facility] Otolaryngology [address] [place] [address] Shailesh Williamson MD Sensorineural hearing loss (SNHL) of both ears (Primary Dx) 01/24/2025 3:04 PM CDT - 01/24/2025 11:59 PM CDT Hospital Encounter [facility] [address] [place] [address] Shailesh Williamson MD Sensory hearing loss, bilateral Discharge Disposition: Discharge to home or self care from Last 3 Months Immunizations Immunization Administration [...] Description 05/17/2025 7:30 AM CDT Hospital Encounter [facility] Operating Room [address] [place] [phone] Shailesh Williamson MD [address] [place] [address] 05/17/2025 7:30 AM CDT - 05/17/2025 9:45 AM CDT Surgery [facility] Operating Room [facility] [place] [id number] Shailesh Williamson MD [address] [place] [address] Implantation Right Cochlear Device [54619 (CPT )] Scheduled Procedures Name Priority Associated Diagnoses Date/Ti me IMPLANTATION COCHLEAR DEVICE UNILATERAL. Sensorineural hearing loss (SNHL) of both ears 05/17/2025 7:30 AM CDT Health Maintenance Due Date Last Done Comments Depression Screening 1941 Fall Risk Assessment 1940 Hepatitis B Screening 12/12/1959 Zoster Vaccine (1 of 2) 12/12/1991 Well Visit 65+ 2006 Influenza Vaccine (#1) 2025 8, 08/06/2017, 08/24/2013, Additional history exists DTaP/Tdap/Td [...] 3:28 PM CDT Sensory hearing loss, bilateral from Last 3 Months Results * Neuro MR Outside Reference (01/30/2025 3:22 PM CDT) Impressions RAD_PACS_SHANTI - 01/30/2025 3:22 PM CDT These images are for Reference purposes only and have not been reviewed by [facility]. There will be no report generated by a [facility] Radiologist. Narrative RAD_PACS_[facility] - 01/30/2025 3:22 PM CDT EXAMINATION: Images For Reference Purposes Only Shailesh Williamson MD IMG MRI PROCEDURES Final R esult Performing Organization Address [facility] de Phone Number [email or web address] * Neuro MR Outside Reference (01/30/2025 3:20 PM CDT) Impressions RAD_PACS_TEMITOPE - 01/30/2025 3:20 PM CDT These images are for Reference purposes only and have not been reviewed by [facility]. There will be no report generated by a [facility] Radiologist. Narrative RAD_PACS_BJ - 01/30/2025 3:20 PM CDT EXAMINATION: Images For Reference Purposes Only Result [facility] Shailesh Williamson MD IMG MRI PROCEDURES Final R esult Performing Organization Address [facility] de Phone Number [email or web address] * Neuro MR Outside Reference (01/30/2025 3:19 PM CDT) Impressions RAD_PACS_TEMITOPEH - 01/30/2025 3:19 PM CDT These images are for Reference purposes only and have not been reviewed by [facility]. There will be no report generated by a [facility] Radiologist. Narrative RAD_PACS_BJ - 01/30/2025 3:19 PM CDT EXAMINATION: Images For Reference Purposes Only Shailesh Williamson MD IMG MRI PROCEDURES Final [...] Electronically signed by: Sam Birmingham MD, PHD Shailesh Williamson MD IMG CT PROCEDURES Final Re sult from Last 3 Months Insurance [address] [place] [address] MEDICARE [facility] MEDICARE [facility] Care Teams Engineering Professor Relationship Specialty Start Date End Date Nikolay Ho DO PCP - General Internal Medicine 03/21/24
--- OUTSIDE RECORDS SUMMARY | 2025-04-19 08:17 | XMS_ITS | Referral Summary ---
Author Organization [facility] Address [address] [place] [phone] Care Team Providers Care Sand Buffer Name Role Phone Nikolay Ho DO Primary Care Provider +1- [phone] Encounters Date Type Department Care Team Description 01/30/2025 3:22 PM CDT - 01/30/2025 11:59 PM CDT Hospital Encounter [facility] [address] [place] [address] Discharge Disposition: Discharge to home or self care 01/30/2025 3:20 PM CDT - 01/30/2025 11:59 PM CDT Hospital Encounter [facility] [address] [place] [address] Discharge Disposition: Discharge to home or self care 01/30/2025 3:19 PM CDT - 01/30/2025 11:59 PM CDT Hospital Encounter [facility] [address] [place] [address] Discharge Disposition: Discharge to home or self care 01/24/2025 4:20 PM CDT Office Visit [facility] [address] [place] [address] Shailesh Williamson MD Sensorineural hearing loss (SNHL) of both ears (Primary Dx) 01/24/2025 3:04 PM CDT - 01/24/2025 11:59 PM CDT Hospital Encounter [facility] Imaging [address] [address] Shailesh Williamson MD Sensory hearing loss, bilateral Discharge Disposition: Discharge to home or self care from Last 3 Months Allergies No known [...] mL (20 mEq total) by mouth daily Active Active Problems Problem Noted Date Diagnosed [...] Description 05/17/2025 7:30 AM CDT Hospital Encounter [facility] Operating Room [address] [place] [phone] Shailesh Williamson MD [address] [place] [address] 05/17/2025 7:30 AM CDT - 05/17/2025 9:45 AM CDT Surgery [facility] Operating Room [address] [place] [phone] Shailesh Williamson MD [address] [place] [address] Implantation Right Cochlear Device [65148 (CPT )] Scheduled Procedures Name Priority Associated [...] only and have not been reviewed by [facility] Radiology. There will be no report generated by a [facility] Radiologist. Narrative RAD_PACS_BJ - 01/30/2025 3:22 PM CDT EXAMINATION: Images For Reference Purposes Only us Shailesh Williamson MD IMG MRI PROCEDURES Final R esult [email or web address] * Neuro MR Outside Reference (01/30/2025 3:20 PM CDT) Impressions ANTONIO_HILDA_[facility] - 01/30/2025 3:20 PM CDT These images are for Reference purposes only and have not been reviewed by [facility]. There will be no report generated by a [facility] Radiologist. Narrative RAD_HILDA_[facility] - 01/30/2025 3:20 PM CDT EXAMINATION: Images For Reference Purposes Only Shailesh Williamson MD [facility] MRI PROCEDURES Final R esult Performing Organization Address [facility] de Phone Number [email or web address] * Neuro MR Outside Reference (01/30/2025 3:19 PM CDT) Impressions JAZZMINE_[facility]JH - 01/30/2025 3:19 PM CDT These images are for Reference purposes only and have not been reviewed by [facility]. There will be no report generated by a [facility] Radiologist. Narrative ANTONIO_HILDA_[facility] - 01/30/2025 3:19 PM CDT EXAMINATION: Images For Reference Purposes Only Shailesh Williamson MD [facility] MRI PROCEDURES Final R esult Performing Organization Address [facility] de Phone Number [email or web address]_PACS_[facility] * CT Temporal [...] Re sult from Last [address] [place] [address] MEDICARE [facility] [address] [place] [address] MEDICARE [facility] Care Teams Sand Buffer Relationship Specialty Start Date End Date Nikolay Ho DO PCP - General Internal Medicine 03/21/24
--- OUTSIDE RECORDS SUMMARY | 2025-04-19 08:17 | XMS_ITS | Clinical Summary ---
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 Gender Identity Not on file Sexual Orientation Not on file Plan of Treatment Health Maintenance Due Date Last Done Comments DTaP, Tdap and Td Vaccines ( 1 - Tdap) 1960 Pneumococcal Vaccine: 50+ Ye ars (1 of 1 - PCV) 12/12/1991 Zoster Vaccines (1 of 2) 12/12/1991 Annual Medicare Wellness Visit 2006 RSV Immunization or 60+ Years (1 - 1-dose 75+ series) 2016 COVID-19 Vaccine ( - 2023-2 5 season) 2024 Meningococcal B Vaccine Aged Out No l onger eligible based on patient's age to complete this topic Meningococcal Vaccine Aged Out No olivia adrian eligible based on patient's age to complete this topic RSV Immunizations Under 20 Months Aged Out No longer eligible based on patient's age to complete this topic Insurance [address] [place] [address] MEDICARE Care Teams Meat Manager Relationship Specialty Start Date End Date Nikolay Ho DO [address] [facility] [address] [place] [address] PCP - General INTERNAL MEDICINE 10/31/24
[2025-04-19 09:43] LABS: INR 1.0; Prothrombin Time 13.5 Seconds (11.1-14.7)
[2025-04-19 09:47] LABS: Alanine Aminotransferase 112 U/L (6-50); Albumin Level 2.7 g/dL (3.5-5.1); Alkaline Phosphatase 252 U/L (38-126); Aspartate Amino Transferase 73 U/L (17-59); Bilirubin,Total 2.2 mg/dL (0.2-1.3); Total Protein 5.5 g/dL (6.3-8.2)
== END 2025-04-19 08:06 | disposition home or self-care (01) ==
PROVIDERS: PCP Internal Medicine; Visit Provider Internal Medicine Critical Care Medicine
DX: J96.11 Chronic respiratory failure with hypoxia (principal); R74.8 Abnormal levels of other serum enzymes; R91.8 Other nonspecific abnormal finding of lung field
CPT/HCPCS: 36415; 71046; 76705; 80076; 81256; 85610

== ENCOUNTER 2025-06-16 12:07 | Emergency (ER) | payer MEDICARE, SELFPAY ==
--- OUTSIDE RECORDS SUMMARY | 2020-11-15 10:35 | XMS_ITS | Continuity of Care Document ---
Author Organization [facility] ic Address [address] [place] [address] Phone Care Team Providers Care Engravings Polisher Name Role Phone Gallo OLYA, Renetta Unavailable Unavailable Allergies, Adverse Reactions, Alerts Substance Reaction Status Criticality No Known Allergies Active No Inform ation Medications Medication Instructions Dosage Effective Dates (start - stop) Status Comments RASUVO (unknown strength) Not Available - Active MULTIVITAMINS (unknown strength) Not Available - Active VITAMIN D3 (unknown strength) Not Available - Active FISH OIL (unknown strength) Not Available - Active Procedures Procedure Date Corneal Topography Corneal Pachymetry-Bilateral Est Extended E&M Est Extended E&M Corneal Topography Corneal Pachymetry-Bilateral Refraction Est Intermediate E&M Refraction SAS Progressive lens per lens Progressive lens per lens Prism lens/es [place] [facility] [employer] Corneal Pachymetry-Bilateral Specular Microscopy - Bilateral 020 Refraction Corneal Topography Est Comprehensive E&M Est Intermediate E&M POSTOP FOLLOW-UP VISIT Post Op SAS POSTOP FOLLOW-UP VISIT POSTOP FOLLOW-UP VISIT POSTOP FOLLOW-UP VISIT POSTOP FOLLOW-UP VISIT Revision or repair of operative wound Oc REPLACEMENT OF CONTACT LENS POSTOP FOLLOW-UP VISIT POSTOP FOLLOW-UP VISIT Post Op SAS Revision or repair of operative wound Se POSTOP FOLLOW-UP VISIT POSTOP FOLLOW-UP VISIT POSTOP FOLLOW-UP VISIT POSTOP FOLLOW-UP VISIT Keratoplasty Endothelial Removal of corneal epithelium 9 Refraction Corneal Topography Specular Microscopy - Bilateral 019 Corneal Pachymetry-Bilateral Est Extended E&M Est Extended E&M Specular Microscopy - Bilateral 019 Corneal Topography Corneal Pachymetry-Bilateral Refraction OCT-Macular Bilateral Est Extended E&M Est Extended E&M OCT-Macular Bilateral Est Extended E&M Est Extended E&M Refraction OCT-Macular Bilateral Comprehensive Eye Code - Established Oct No Charge Visit Est Intermediate E&M Refraction OCT-Macular Bilateral EYE EXAM NEW PATIENT Advance Directives Directive Yes / No Effective Date File Name No Information Encounters Encounter Description Practice Location Reason(s) For Visit Diagnoses Date Provider Providers Copied on Encounter [facility], [address] [place], [id number] , [place] tel: [phone] [facility] No Information [address] [place], [id number], [place]. tel:[phone] Est Extended E&M [facility], [address] [place], [id number] , tel: [phone] [facility] cornea follow-up (chief complaint) Corneal transplant statusNodular corneal degeneration, left eyeBullous keratopathy, left eyeIris atrophy of left eyePuckering of macula of right eyeOther secondary cataract, right eyeVertical heterophoria [address] Renetta[address], [place], [id number], . tel:[phone] Referring Provider: Renetta Acosta, [address] [place], [place], [address] . tel:[phone] [facility], [address], [place], [id number] , tel: [phone] [facility] eyeglasses, problem (chief complaint) Corneal transplant statusNodular corneal degeneration, left eyeBullous keratopathy, left eyeIris atrophy of left eyePuckering of macula of right eyeVertical heterophoriaReg ular astigmatism, bilateral [address], [place], [place], [id number], [place]. tel:[phone] Referring Provider: James Santiago, [address], [place], [address] . tel:[phone] [facility], [address] [place], [place], [id number] , tel: [phone] [facility] No Information 0 Sjoberg Renetta. [address], [place], [place], [id number], [place]. tel:[phone] Referring Provider: Renetta Acosta, [address] [place], [address] . tel:[phone] [facility], [address] [place], [place], [id number] , [place] tel: [phone] [facility] follow up cornea (chief complaint) Corneal transplant statusNodular corneal degeneration, left eyeBullous keratopathy, left eyeIris atrophy of left eyePuckering of macula of right eyeOther secondary cataract, right eyeVertical heterophoriaReg ular astigmatism, bilateral [address] Renetta[address], [place], [id number], [place]. tel:[phone] Referring Provider: Renetta Acosta, [address] [place], [address] . tel:[phone] [facility], [address], [place], [id number] , [place] tel: [phone] [facility] cornea follow up (chief complaint) Corneal transplant statusNodular corneal degeneration, left eyeBullous keratopathy, left eyeIris atrophy of left eyePuckering of macula of right eyeOther secondary cataract, right eyeVertical heterophoria Oct-3 0-201 [address], [place], [id number], [place]. tel:[phone] Referring Provider: Renetta Acosta, [address] [place], [address] . tel:[phone] [facility], [address], [place], [id number] , [place] tel: [phone] [facility] painful eye (chief complaint) Corneal transplant statusBullous keratopathy, left eyeNodular corneal degeneration, left eyeIris atrophy of left eyePuckering of macula of right eyeOther secondary cataract, right eyeVertical heterophoria Oct-2 3-201 [address] [place], [place], [address]. tel:[phone] Referring Provider: Renetta Acosta, [address] [place], [address] . tel:[phone] [facility], [address] [place], [place], [id number] , [place] tel: [phone] [facility] PO DSEK OS (chief complaint) Corneal transplant statusBullous keratopathy, left eyeNodular corneal degeneration, left eyeIris atrophy of left eyePuckering of macula of right eyeOther secondary cataract, right eyeVertical heterophoria Oct-2 2-201 9 Gallo Jackson. [address] [place], [id number], [place]. tel:[phone] Referring Provider: Renetta Acosta, [address] [place], [address] . tel:[phone] [facility], [address], [place], [id number] , [place] tel: [phone] [facility] Post-op Corneal Transplant (chief complaint) Bullous keratopathy, left eyeCorneal transplant statusNodular corneal degeneration, left eyeIris atrophy of left eyePuckering of macula of right eyeVertical heterophoriaOth er secondary cataract, right eye Oct-0 2 [address] [place], [place], [id number], [place]. tel:[phone] Referring Provider: Renetta Acosta, [address] [place], [address] . tel:[phone] [facility], [address] [place], [place], [id number] , [place] tel: [phone] [facility] No Information Oct-0 9 Gallo [address] [place], [place], [id number], [place]. tel:[phone] Referring Provider: Renetta Acosta, [address], [address] . tel:[phone] [facility], [address] [place], [id number] , [place] tel: [phone] [facility] Bullous keratopathy, left eye Sep-3 0-201 9 Gallo Jackson. [address] [place], [id number], [place]. tel:[phone] [facility], [address] [place], [id number] , tel: [phone] [facility] Pain OS (chief complaint) Corneal transplant statusBullous keratopathy, left eyeNodular corneal degeneration, left eyeIris atrophy of left eye Sep-3 0 [address], [place], [id number], [place]. tel:[phone] Referring Provider: Franki Carson, [address], [place], [address] . tel:[phone] [facility], [address] [place], [place], [id number] , [place] tel: [phone] [facility] No Information Sep-2 9 [facility]. [address], [place], [id number], [place]. tel:[phone] Referring Provider: Renetta Acosta, [address] [place], [place], [address] . tel:[phone] [facility], [address] [place], [id number] , [place] tel: [phone] [facility] Post-op Corneal Transplant (chief complaint) Corneal transplant statusBullous keratopathy, left eyeNodular corneal degeneration, left eyeIris atrophy of left eyePuckering of macula of right eyeVertical heterophoriaOth er secondary cataract, right eye Sep-2 [facility] Renetta. [address] [place], [place], [id number], [place]. tel:[phone] Referring Provider: Renetta Acosta, [address] [place], [address] . tel:[phone] [facility], [address] [place], [id number] , [place] tel: [phone] [facility] Post-op Corneal Transplant (chief complaint) Corneal transplant statusBullous keratopathy, left eyeNodular corneal degeneration, left eyeIris atrophy of left eyePuckering of macula of right eyeVertical heterophoriaOth er secondary cataract, right eye Sep-1 9 [facility]. [address], [place], [place], [id number], [place]. tel:[phone] Referring Provider: Renetta Acosta, [address] [place], [place], [address] . tel:[phone] [facility], [address], [place], [id number] , [place] tel: [phone] [facility] Corneal transplant status [address], [place], [id number], [place]. tel:[phone] Referring Provider: Renetta Acosta, [address], [place], [address] . tel:[phone] [facility] E[facility], [address] [place], [place], [place], [id number] , [place] tel: [phone] [facility] Pain OS (chief complaint) Iris atrophy of left eyePuckering of macula of right eyeVertical heterophoriaNod ular corneal degeneration, left eyeBullous keratopathy, left eyeHypermetropi a, left eyeOther secondary cataract, right eye [address], [place], [id number], [place]. tel:[phone] Referring Provider: Renetta Acosta, [address] [place], [place], [address] . tel:[phone] [facility], [address] [place], [place], [place], [id number] , [place] tel: [phone] [facility] Eye Not Working Together (chief complaint) Vertical heterophoriaUns pecified corneal edemaMeibomian gland dysfunction right eye, upper and lower eyelidsMeibomia n gland dysfunction left eye, upper and lower eyelidsHypermet ropia, left eyeIris atrophy of left eyePuckering of macula of right eye 9 Merly Doan. [address] [place], [id number], [place]. tel:[phone] Referring Provider: Franki Carson, [address] [place], [place], [address] . tel:[phone] [facility] E[facility], [address] [place], [place], [id number] , tel: [phone] [facility] difficulty reading (chief complaint) Presence of intraocular lensHypermetrop ia, left eyeVertical heterophoriaUns pecified corneal edemaMeibomian gland dysfunction right eye, upper and lower eyelidsMeibomia n gland dysfunction left eye, upper and lower eyelidsPuckerin g of macula, bilateralMigrai ne with aura, not intractable, w/o status migrainosus [address], [place], [id number], [place]. tel:[phone] Referring Provider: Franki Carson, [address] [place], [place], [address] . tel:[phone] [facility], [address], [place], [id number] , [place] tel: [phone] [facility] Annual Exam (chief complaint) Puckering of macula, right eyeUnspecified corneal edemaVertical heterophoriaUns pecified blepharoconjunc tivitis, bilateralPresen ce of intraocular lensOther iris atrophyHypermet ropia, left eyeRegular astigmatism, bilateralPresby opia [address] [place], [place], [address]. tel:[phone] Referring Provider: Nikolay Edge V, [address] [place], [place], [address]. tel:[phone] [facility], [address], [place], [place], [id number] , [place] tel: [phone] [facility] Follow Up (chief complaint) Other iris atrophyPresence of intraocular lensUnspecified blepharoconjunc tivitis, bilateralVertic al heterophoriaUns pecified corneal edema [address] [place], [place], [address]. tel:[phone] Referring Provider: Nikolay Edge V, [address], [place], [address]. tel:[phone] [facility], [address], [place], [id number] , tel: [phone] [facility] Blurred Vision (chief complaint) Other iris atrophyUnspecif ied corneal edemaVertical heterophoriaUns pecified blepharoconjunc tivitis, bilateralPresen ce of intraocular lens Minesh Link. [address], [place], [address]. tel:[phone] Referring Provider: Nikolay Edge V, [address] [place], [place], [address]. tel:[phone] [facility], [address], [place], [id number] , tel: [phone] [facility] Annual Exam (chief complaint) Presence of intraocular lensPuckering of macula, bilateralUnspec ified corneal edemaUnspecifie d blepharoconjunc tivitis, bilateralOther iris atrophyHypermet ropia, bilateralRegula r astigmatism, bilateralPresby opiaVertical heterophoria No Information Family History Family Member Type Diagnosis Age At Onset Mother Problem (finding) cataract Payers Payer name Insurance type Covered democrat ID Authoriza tion(s) [employer] Medicare MB [id number] Med[employer] CI [id number] Social History Type Description Quantity Date Captured Comments Alcohol Use Details Unknown Caffeine Use Details Unknown Tobacco Use Status No Information Smoking Status No Information Sex Male Chief Complaint And Reason For Visit No Information Reason For Referral Reason For Referral No Information Plan Of Treatment Date Type Action Status Referral Ordered: Referrals: Pathology - Clinical ordered Referral Referred To: Rohini Person MD [facility]
[address] [place], [phone] Ordered: Referrals: Family Medicine. Rohini Person MD. Consult ordered History Of Present Illness Encounter Date Complaint History Of Prese nt Illness cornea follow-up Pt. states DVA and NVA OU constantly stable since SPENCER. Note OU still don't work well together when reading, wears eye patch OS when watching TV or reading. Denies any eye pain OU. Screening for COVID-19; Patient reports no close contact with known COVID-19. Patient denies any COVID-19 symptoms or recent travel. Temperature screening within normal limits today. eyeglasses, problem The 79 year old male presents for evaluation of eyeglasses problem. Having trouble reading. Has to lift glasses way up and look through the very bottom with OD to see better and OS is blurred for close work through any part of the bifocal. Still has double vision. It is less double with new glasses. OU are without pain or discomfort.Screening for COVID-19: Patient reports no close contact with known COVID-19. Patient denies any COVID-19 symptoms or recent travel. Temperature within normal limits today. follow up cornea The 79 year old male presents for evaluation of follow up cornea. Pt states VA OU stable over the past 9 months. No eye pain or discomfort OU. Screening for COVID-19: Patient reports no close contact with known COVID-19. Patient denies any COVID-19 symptoms or recent travel. Temperature screening within normal limits today. cornea follow up Pt states VA OU stable x 1 week for distance and near. Pt denies dryness and pain OU. painful eye Pt struggling wi th pain and sensitivity constantly after removal of BCL OS yesterday. Vision OS also seems more blurry since yesterday. OS has also been very sore the last couple hours. Vision OD stable. No pain or discomfort OD. Pt requesting BCL be put back in for comfort OS. PO DSEK OS VA is better in OS near and far for the past few days. No pain or discomfort in OU for the past week. OD VA unchanged. Post-op Corneal Transplant 1 day PO rebubble/reposition OS. Pt. states had terrible pain last night, did take 1 Percocet which did help some. Finally went to sleep and had no pain upon waking until moved. Took Tylenol and CBD oil for pain this morning, seems manageable now. VA OS blurry. VA OD stable. Pain OS Pt states about 2:00 pm yesterday he started to get pain in OS and continued to get worse. No changes to VA OU. Pt had a DSEK with SK OS on 06-07-19, SAS. He has taken Tylenol and CBD oil that has helped take the pain away so he could get some sleep. The pain was back this morning. Post-op Corneal Transplant 1 wee k DSEK with SK. Pt. states VA OS has not cleared up at all. Used to be a big air bubble but now sees dark spot superior temporally, does not move around. Has noticed the past 3 days. VA OS seems milky. No real eye pain but does have scratchy, surface problems. VA OD stable, no problems. Post-op Corneal Transplant 1 Day post op OS DSEK 06/07/19. Pt states surgery went well yesterday and he was doing fine until about 4am when he was woken suddenly, he then started feeling a lot of pain. Pt took a tylenol and ibuprofen which seemed to help some until he was on his way here. Pt is in a lot of pain now. VA OS very blurry and has a hard time opening his eye due to pain. VA OD unchanged. Pain OS Pt states DVA an d NVA OU has been stable since last exam 4 months ago. He does patch os when reading and driving otherwise he will see double. When patient wakes up in the mornings OS is painful, throughout the day the pain will come back on and off. He will have to put an artifical tear in OS and patch it to make it feel better. If it gets to bad he will over his eyes and lay down for awhile. No pain OU currently. Eye Not Working Together Pt. sta bridger his eyes have not been working together x 1 year, feels his prism is not correct in new glasses. Pt. is wearing older RX today, feels his eyes work together better with these glasses. Tends to patch OS in order to see well, has to patch when driving. Notes glare in OS>OD x 1 year. Wanting to discuss if an IOL exchange is an option for him in OS, feels this will help his eyes work together better. No pain OU. difficulty reading Pt states DVA OD is unchanged NVA is getting more difficult for reading. VA OS is not very good for distance or near. He tends to keep OS patched most of the time so he doesn't get double VA. Over the last 4 years pt has been getting dizzy spells, fatigue and ocular migraines. In the last 6 months is has progressively gotten worse. He will get a lot of pressure behind his eyes when he is having an ocular migraine. Pt denies any pain OU. Annual Exam Pt states VA in OU has gradually decreased dist and near x 3 months. Pt notes when reading he uses a brighter light and occasionally has to use a magnifying glass. Pt states when looking at street signs he has trouble with the contrast and usually has to close OS to make them out. No pain or discomfort in OU, occasionally has some dryness. Denies any flashes or floaters but occasionally sees a lo of blood when working out.OCT ordered per Dr. Edge. Follow Up Pt states was ab le to get CL in OS two times but states the lens is too floppy. VA OU unchanged. No pain OU. Blurred Vision Pt states VA in OS has decreased gradually x 6 months. Pt is here for exam and to inquire about alternative optical corrections for his left eye. 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 He is curious if he can obtian some pinhile glasses or a pinhole clip on lens for OS. He is also curious if a contact lens can be made with a pupil to cover his abnormal pupil. Annual Exam Pt states that D VA and NVA OU has been stable for awhile now. Last exam was a little over a year ago now. Occasionally his eyes will get fuzzy and have pain in OU. Pt states this has been an on going problem for years now. Pt denies any pain or discomfort OU. Pt denies diplopia with glasses on. 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 Impression/Plan 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/Plan 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 Impression/Plan Related to Regul ar astigmatism, bilateral Impression/Plan Related to Nodul ar corneal degeneration, left eye Impression/Plan Related to Corne al transplant status Impression/Plan Related to Nodul ar corneal degeneration, left eye Impression/Plan Related to Bullo us keratopathy, left eye Impression/Plan Related to Corne al transplant status Impression/Plan 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 Impression/Plan 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/Plan Related to Other secondary cataract, right eye Impression/Plan 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 Impression/Plan Related to Regul ar astigmatism, bilateral Impression/Plan Related to Bullo us keratopathy, left eye Impression/Plan 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 Impression/Plan 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/Plan Related to Other secondary cataract, right eye Impression/Plan 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 Impression/Plan Related to Corne al transplant status Impression/Plan Related to Nodul ar corneal degeneration, left eye Impression/Plan Related to Bullo us keratopathy, left eye Impression/Plan Related to Nodul ar corneal degeneration, left eye Impression/Plan 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 Impression/Plan 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/Plan Related to Other secondary cataract, right eye Jun- Impression/Plan 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 Impression/Plan Related to Corne al transplant status Impression/Plan Related to Corne al transplant status Impression/Plan Related to Bullo us keratopathy, left eye Impression/Plan Related to Nodul ar corneal degeneration, left eye Impression/Plan 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 Impression/Plan 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/Plan Related to Other secondary cataract, right eye Jun- Impression/Plan 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 Impression/Plan 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/Plan 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 Impression/Plan Related to Nodul ar corneal degeneration, left eye Impression/Plan 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 Impression/Plan Related to Other secondary cataract, right eye Impression/Plan Related to Bullo us keratopathy, left eye Impression/Plan Related to Corne al transplant status Impression/Plan Related to Nodul ar corneal degeneration, left eye Impression/Plan 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 Impression/Plan Related to Corne al transplant status Impression/Plan Related to Bullo us keratopathy, left eye Impression/Plan Related to Bullo us keratopathy, left eye Impression/Plan Related to Corne al transplant status Impression/Plan 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 Impression/Plan 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/Plan 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 Impression/Plan Related to Other secondary cataract, right eye Impression/Plan Related to Bullo us keratopathy, left eye Impression/Plan Related to Nodul ar corneal degeneration, left eye Impression/Plan Related to Nodul ar corneal degeneration, left eye Impression/Plan 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 Impression/Plan Related to Corne al transplant status Impression/Plan Related to Bullo us keratopathy, left eye Impression/Plan Related to Other secondary cataract, right eye Impression/Plan 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/Plan 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 Impression/Plan Related to Corne al transplant status Impression/Plan 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 Impression/Plan Related to Bullo us keratopathy, left eye Impression/Plan Related to Nodul ar corneal degeneration, left eye Impression/Plan Related to Other secondary cataract, right eye Impression/Plan 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/Plan 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 Impression/Plan Related to Hyper metropia, left eye Impression/Plan Related to Meibo laith gland dysfunction right eye, upper and lower eyelids Impression/Plan Related to Unspe cified corneal edema Impression/Plan 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 Impression/Plan Related to Unspe cified corneal edema Impression/Plan 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 Impression/Plan 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/Plan Related to Meibo laith gland dysfunction left eye, upper and lower eyelids Impression/Plan Related to Hyper metropia, left eye Impression/Plan Related to Prese nce of intraocular lens Impression/Plan Related to Hyper metropia, left eye Impression/Plan Related to Pucke ring of macula, bilateral Impression/Plan 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 Relat ed to Puckering of macula, right eye Follow up - Return t o clinic with Dr. Nikolay Edge in 1 year for annual eye exam Impression/Plan - Pt still interested in options to decrease glare in this eye. Checked with 4 labs and no scleral lens options iris/pupil aperatures available. Pt didn't have enough improvement with the standard colored soft CL that he trialed. Pt is not ready to spend the money to trial a custom iris/pupil aperature soft contact lens. 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 Relat ed to Presence of intraocular lens Impression/Plan - Mo nitor. Warm compress/lid scrubs daily. 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 He wishes to trial one that is thicker or more firm. Patient expressed interest in trying a scleral CL if it could be made to have a pupil/iris. Will look into options for tinted scleral lenses & will order Biofinity Expression SCL to see if patient likes the firmness of the lens better. 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 Relat ed to Presence of intraocular lens Impression/Plan - Mo nitor. Warm compress/lid scrubs daily. 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 Relat ed to Presence of intraocular lens Impression/Plan - Mo nitor. Warm compress/lid scrubs daily. 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 Will also look into Rx-able pinhole glasses. 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 Monica Edge for annual eye exam and mac OCT Impression/Plan - New SRx given. 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 Warm compress/lid scrubs daily. Related to Unspecified blepharoconjunctivitis, bilateral Impression/Plan - Monitor. 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 Relat ed to Unspecified corneal edema Impression/Plan - Mo nitor. No treatment recommended at this time. Patient advised to call clinic with decrease in vision. 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 Relat ed to Presence of intraocular lens Assessments Type Assessment Date No Information Patient Care Teams Name Effective Dates (start - stop) Status Members No Information
--- OUTSIDE RECORDS SUMMARY | 2020-11-15 10:35 | XMS_ITS | Continuity of Care Document ---
Author Organization 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 [place], [id number], [place]. tel:[phone] Est Extended E&M [facility], [address] [place], [id number] , tel: [phone] [facility] cornea follow-up (chief complaint) Corneal transplant statusNodular corneal degeneration, left eyeBullous keratopathy, left eyeIris atrophy of left eyePuckering of macula of right eyeOther secondary cataract, right eyeVertical heterophoria [address] Renetta[address], [place], [id number], . tel:[phone] Referring Provider: Renetta Acosta, [address] [place], [place], [address] . tel:[phone] [facility] E&[facility], [address], [place], [id number] , tel: [phone] [facility] eyeglasses, problem (chief complaint) Corneal transplant statusNodular corneal degeneration, left eyeBullous keratopathy, left eyeIris atrophy of left eyePuckering of macula of right eyeVertical heterophoriaReg ular astigmatism, bilateral [address], [place], [place], [id number], [place]. tel:[phone] Referring Provider: James Santiago, [address], [place], [address] . tel:[phone] [facility], [address] [place], [place], [id number] , tel: [phone] [facility] No Information 0 Sjoberg Renetta. [address], [place], [place], [id number], [place]. tel:[phone] Referring Provider: Renetta Acosta, [address] [place], [address] . tel:[phone] [facility], [address] [place], [place], [id number] , [place] tel: [phone] [facility] follow up cornea (chief complaint) Corneal transplant statusNodular corneal degeneration, left eyeBullous keratopathy, left eyeIris atrophy of left eyePuckering of macula of right eyeOther secondary cataract, right eyeVertical heterophoriaReg ular astigmatism, bilateral [address] Renetta[address], [place], [id number], [place]. tel:[phone] Referring Provider: Renetta Acosta, [address] [place], [address] . tel:[phone] [facility] E[facility], [address], [place], [id number] , [place] tel: [phone] [facility] cornea follow up (chief complaint) Corneal transplant statusNodular corneal degeneration, left eyeBullous keratopathy, left eyeIris atrophy of left eyePuckering of macula of right eyeOther secondary cataract, right eyeVertical heterophoria Oct-3 0-201 [address], [place], [id number], [place]. tel:[phone] Referring Provider: Renetta Acosta, [address] [place], [address] . tel:[phone] [facility], [address], [place], [id number] , [place] tel: [phone] [facility] painful eye (chief complaint) Corneal transplant statusBullous keratopathy, left eyeNodular corneal degeneration, left eyeIris atrophy of left eyePuckering of macula of right eyeOther secondary cataract, right eyeVertical heterophoria Oct-2 3-201 [address] [place], [place], [address]. tel:[phone] Referring Provider: Renetta Acosta, [address] [place], [address] . tel:[phone] [facility], [address] [place], [place], [id number] , [place] tel: [phone] [facility] PO DSEK OS (chief complaint) Corneal transplant statusBullous keratopathy, left eyeNodular corneal degeneration, left eyeIris atrophy of left eyePuckering of macula of right eyeOther secondary cataract, right eyeVertical heterophoria Oct-2 2-201 9 Gallo Jackson. [address] [place], [id number], [place]. tel:[phone] Referring Provider: Renetta Acosta, [address] [place], [address] . tel:[phone] [facility], [address], [place], [id number] , [place] tel: [phone] [facility] Post-op Corneal Transplant (chief complaint) Bullous keratopathy, left eyeCorneal transplant statusNodular corneal degeneration, left eyeIris atrophy of left eyePuckering of macula of right eyeVertical heterophoriaOth er secondary cataract, right eye Oct-0 2 [address], [place], [id number], [place]. tel:[phone] Referring Provider: Renetta Acosta, [address] [place], [address] . tel:[phone] [facility], [address], [place], [id number] , [place] tel: [phone] [facility] No Information Oct-0 9 Gallo Jackson[address] [place], [place], [id number], [place]. tel:[phone] Referring Provider: Renetta Acosta, [address], [address] . tel:[phone] [facility], [address] [place], [id number] , [place] tel: [phone] [facility] Bullous keratopathy, left eye Sep-3 0-201 9 Gallo Jackson. [address] [place], [id number], [place]. tel:[phone] [facility], [address] [place], [id number] , tel: [phone] [facility] Pain OS (chief complaint) Corneal transplant statusBullous keratopathy, left eyeNodular corneal degeneration, left eyeIris atrophy of left eye Sep-3 0 [address], [place], [id number], [place]. tel:[phone] Referring Provider: Franki Carson, [address], [place], [address] . tel:[phone] [facility], [address] [place], [place], [id number] , [place] tel: [phone] [facility] No Information Sep-2 9 [facility]. [address], [place], [id number], [place]. tel:[phone] Referring Provider: Renetta Acosta, [address] [place], [place], [address] . tel:[phone] [facility], [address] [place], [id number] , [place] tel: [phone] [facility] Post-op Corneal Transplant (chief complaint) Corneal transplant statusBullous keratopathy, left eyeNodular corneal degeneration, left eyeIris atrophy of left eyePuckering of macula of right eyeVertical heterophoriaOth er secondary cataract, right eye Sep-2 [facility] Renetta. [address] [place], [place], [id number], [place]. tel:[phone] Referring Provider: Renetta Acosta, [address] [place], [address] . tel:[phone] [facility], [address] [place], [id number] , [place] tel: [phone] [facility] Post-op Corneal Transplant (chief complaint) Corneal transplant statusBullous keratopathy, left eyeNodular corneal degeneration, left eyeIris atrophy of left eyePuckering of macula of right eyeVertical heterophoriaOth er secondary cataract, right eye Sep-1 9 [facility]. [address], [place], [place], [id number], [place]. tel:[phone] Referring Provider: Renetta Acosta, [address] [place], [place], [address] . tel:[phone] [facility], [address], [place], [id number] , [place] tel: [phone] [facility] Corneal transplant status [address], [place], [id number], [place]. tel:[phone] Referring Provider: Renetta Acosta, [address], [place], [address] . tel:[phone] [facility] E&M [facility], [address], [place], [place], [id number] , [place] tel: [phone] [facility] Pain OS (chief complaint) Iris atrophy of left eyePuckering of macula of right eyeVertical heterophoriaNod ular corneal degeneration, left eyeBullous keratopathy, left eyeHypermetropi a, left eyeOther secondary cataract, right eye [address], [place], [id number], [place]. tel:[phone] Referring Provider: Renetta Acosta, [address] [place], [place], [address] . tel:[phone] [facility] E&[facility], [address], [place], [place], [id number] , [place] tel: [phone] [facility] Eye Not Working Together (chief complaint) Vertical heterophoriaUns pecified corneal edemaMeibomian gland dysfunction right eye, upper and lower eyelidsMeibomia n gland dysfunction left eye, upper and lower eyelidsHypermet ropia, left eyeIris atrophy of left eyePuckering of macula of right eye 9 Merly Doan. [address] [place], [id number], [place]. tel:[phone] Referring Provider: Franki Carson, [address] [place], [place], [address] . tel:[phone] [facility] E&M [facility], [address] [place], [place], [id number] , tel: [phone] [facility] difficulty reading (chief complaint) Presence of intraocular lensHypermetrop ia, left eyeVertical heterophoriaUns pecified corneal edemaMeibomian gland dysfunction right eye, upper and lower eyelidsMeibomia n gland dysfunction left eye, upper and lower eyelidsPuckerin g of macula, bilateralMigrai ne with aura, not intractable, w/o status migrainosus [address], [place], [id number], [place]. tel:[phone] Referring Provider: Franki Carson, [address], [place], [address] . tel:[phone] [facility], [address], [place], [id number] , [place] tel: [phone] [facility] Annual Exam (chief complaint) Puckering of macula, right eyeUnspecified corneal edemaVertical heterophoriaUns pecified blepharoconjunc tivitis, bilateralPresen ce of intraocular lensOther iris atrophyHypermet ropia, left eyeRegular astigmatism, bilateralPresby opia 8 [address] Link[address] [place], [place], [address]. tel:[phone] Referring Provider: Nikolay Edge V, [address] [place], [place], [address]. tel:[phone] [facility], [address], [place], [place], [id number] , [place] tel: [phone] [facility] Follow Up (chief complaint) Other iris atrophyPresence of intraocular lensUnspecified blepharoconjunc tivitis, bilateralVertic al heterophoriaUns pecified corneal edema 7 Mines[address] Link[address] [place], [place], [address]. tel:[phone] Referring Provider: Nikolay Edge V, [address], [place], [address]. tel:[phone] [facility] E[facility], [address], [place], [id number] , tel: [phone] [facility] Blurred Vision (chief complaint) Other iris atrophyUnspecif ied corneal edemaVertical heterophoriaUns pecified blepharoconjunc tivitis, bilateralPresen ce of intraocular lens Minesh Link. [address], [place], [address]. tel:[phone] Referring Provider: Nikolay Edge V, [address] [place], [place], [address]. tel:[phone] [facility], [address], [place], [id number] , tel: [phone] [facility] Annual Exam (chief complaint) Presence of intraocular lensPuckering of macula, bilateralUnspec ified corneal edemaUnspecifie d blepharoconjunc tivitis, bilateralOther iris atrophyHypermet ropia, bilateralRegula r astigmatism, bilateralPresby opiaVertical heterophoria No Information Family History Family Member Type Diagnosis Age At Onset Mother Problem (finding) cataract Payers Payer name Insurance type Covered alliance party ID Authoriza tion(s) [employer] Medicare MB [id number] [employer] CI [id number] Social History Type Description Quantity Date Captured Comments Alcohol Use Details Unknown Caffeine Use Details Unknown Tobacco Use Status No Information Smoking Status No Information Sex Male Chief Complaint And Reason For Visit No Information Reason For Referral Reason For Referral No Information Plan Of Treatment Date Type Action Status Referral Ordered: Referrals: Pathology - Clinical ordered Referral Referred To: Rohini Person MD [facility]
[address] [place], [id number] Ordered: Referrals: Family Medicine. Rohini Person MD. 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.] secondary cataract, right eye Impression/Plan Related to Nodul ar corneal [...] secondary cataract, right eye Impression/Plan Related to Corne al transplant status Impression/Plan Related to Bullo us keratopathy, left eye Impression/Plan Related to Nodul ar corneal degeneration, left eye Impression/Plan 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 Impression/Plan 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/Plan 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 Impression/Plan Related to Other secondary cataract, right eye Impression/Plan Related to Corne al transplant status Impression/Plan Related to Bullo us keratopathy, left eye Impression/Plan Related to Nodul ar corneal degeneration, left eye Impression/Plan Related to Other secondary cataract, right eye Impression/Plan 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 Warm compress/lid scrubs daily. Related to Unspecified blepharoconjunctivitis, bilateral Impression/Plan - Monitor. Relat ed to Presence of intraocular lens Impression/Plan - Pt still interested in options [...] corneal edema. 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 Relat ed to Puckering of macula, right eye Impression/Plan Related to Verti emmanuel [...] Unspecified corneal edema Follow up - keep 2/2 018 recall for annual exam and OCT macula Impression/Plan - Wi ll try plano tinted CL's: Air Optix Colors & Freshlook Colors, lenses set aside for patient to RTC to try. Will also look into Rx-able pinhole glasses. 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 Warm compress/lid scrubs daily. Related to Unspecified blepharoconjunctivitis, bilateral Impression/Plan - Monitor. Relat ed to Presence of intraocular lens Follow up - keep 2 018 recall for annual exam and OCT macula Impression/Plan - Monitor. 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 No treatment recommended at this time. Patient advised to call clinic with decrease in vision. 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 Relat ed to Unspecified corneal edema Impression/Plan - Monitor. 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 Warm compress/lid scrubs daily. Related to Unspecified blepharoconjunctivitis, bilateral Impression/Plan - New SRx given. 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 Monica Edge for annual eye exam and mac OCT Assessments Type Assessment Date No Information Patient Care Teams Name Effective Dates (start - stop) Status Members No Information
--- NOTE | ~2025-06-16 | CT_ITS ---
EXAMINATION: CT lumbar spine wo con COMPARISON: None HISTORY: low back pain TECHNIQUE: Axial images were obtained through the spine without IV contrast. Coronal, sagittal reconstruction images were obtained from the axial views. CT scan performed using dose optimization techniques including the following automated exposure control; adjustment of mA and/or kV; use of iterative reconstruction technique. Automatic exposure control was used to reduce radiation dose. Permanent radiation dose record is archived to PACS. FINDINGS: Moderate osteopenia. There are multiple remote appearing compression fractures throughout the entire lumbar spine with findings most marked involving L1 with loss of height 90%, no retropulsion is identified. There is a acute or chronic appearing fracture of T11 with loss of height 50% and irregularity of the cortex anteriorly, no retropulsion. Moderate to severe loss of disc height throughout with multilevel moderate to severe canal and foraminal stenosis most marked at T12-L1 and L1-2. Soft tissues unremarkable. Impression: Acute on chronic fracture suspected of T11, MRI is suggested to assess for bony edema. Multiple additional remote appearing compression fractures. Reviewed, dictated and finalized at location P. Impression: Acute on chronic fracture suspected of T11, MRI is suggested to assess for bony edema. Multiple additional remote appearing compression fractures.
--- OUTSIDE RECORDS SUMMARY | 2025-06-16 12:09 | XMS_ITS | Clinical Summary ---
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 Gender Identity Not on file Sexual Orientation [...] COVID-19 Vaccine ( - 2023-2 5 season) 2025 Meningococcal B Vaccine Aged Out No l onger eligible based on patient's age to complete this topic Meningococcal Vaccine Aged Out No olivia adrian eligible based on patient's age to complete this topic RSV Immunizations Under 20 Months Aged Out No longer eligible based on patient's age to complete this topic Insurance [address] [place] [address] MEDICARE Care Teams Dip Tube Assembler Machine Relationship Specialty Start Date End Date Nikolay Ho DO [address] [facility] [address] [place] [address] PCP - General INTERNAL MEDICINE 10/31/24
--- OUTSIDE RECORDS SUMMARY | 2025-06-16 12:10 | XMS_ITS | Clinical Summary ---
Author Organization [facility] Address [address] [place] [phone] Care Team Providers Care Bar Examiner Name Role Phone Nikolay Ho DO Primary Care Provider [phone] Allergies No known active allergies Medications testosterone [...] mEq total) by mouth daily 4 Active amoxicillin (AMOXIL) 500 mg tablet/capsule Take 1 tablet/capsule (500 mg total) by mouth 2 (two) times a day 10 tablet/capsu le 5 Active HYDROcodone-acet aminophen (NORCO) 7.5-325 mg per tabletIndication s:Pain Take 1 tablet by mouth every 6 (six) hours as needed for pain 15 tablet 5 Active HYDROcodone-acet aminophen (NORCO) 7.5-325 mg per tabletIndication s:Pain Take 1 tablet by mouth every 6 (six) hours as needed for pain 2 tablet 5 Active methylPREDNISolo ne (MEDROL DOSEPACK) 4 mg Dosepack Take as directed on package 1 packet 05/23/20 25 Active Problems Problem Noted Date Diagnosed Date Sensorineural hearing loss (SNHL) of both ears 0 01/24/2025 Encounters Date Type Department Care Team Description 05/31/2025 10:00 AM CDT Procedure visit [facility] Otolaryngology [address] [facility], [address] [place] [phone] Jessica Kirkpatrick CCC-A Sensorineural hearing loss, bilateral (Primary Dx); Encounter for adjustment and management of cochlear device 05/31/2025 Orders Only [facility] Otolaryngology [address] [facility], [address] [phone] Janeen Almendarez CMA 05/30/2025 Telephone [facility] Otolaryngology [address] [facility], [address] [phone] Jessica Kirkpatrick CCC-A 05/30/2025 Documentation [facility] Otolaryngology [address] [facility], [address] [place] [phone] Jessica Kirkpatrick CCC-A 05/24/2025 Documentation [facility] Otolaryngology [address] [facility], [address] [place] [phone] Jessica Kirkpatrick CCC-A 05/17/2025 8:03 AM CDT Anesthesia Event [facility] Operating Room [address] [place] [phone] Crissy Montilla MD McVey, Lynexis Parisann, CRNA 05/17/2025 7:30 AM CDT - 05/17/2025 9:45 AM CDT Surgery [facility] Operating Room [address] [place] [phone] Shailesh Williamson MD Implantation Right Cochlear Device [92574 (CPT )] 05/17/2025 6:12 AM CDT - 05/17/2025 12:20 PM CDT Hospital Encounter [facility] Operating Room [facility] [place] [phone] Shailesh Williamson MD Sensorineural hearing loss (SNHL) of both ears [H90.3] (Primary Dx) Discharge Disposition: Discharge to home or self care 05/17/2025 Treatment [facility] Otolaryngology [address] [facility], [address] [place] [phone] Arely Mckay Au.D. Sensorineural hearing loss (SNHL) of both ears (Primary Dx) 04/27/2025 Telephone [facility] Pre Anesthesia Testing [address] [place] [phone] Courtney Harding from Last 3 Months Immunizations Immunization Administration Dates Next Due Pneumococcal Conjugate PCV 13 08/24/2015 Surgical History Surgery Date Site/Laterality Comments CATARACT EXTRACTION Bilateral FEMUR FRACTURE SURGERY Left EYE SURGERY Left EAR MASTOIDECTOMY W/ COCHLEA R IMPLANT W/ LANDMARK 05/17/2025 Ear/Right Procedure: Implantation Right Cochlear Device; Surgeon: Shailesh Williamson MD; Location: [facility] OPERATING ROOM; Service: Otolaryngology; Laterality: Right; [id number] device code, Leica OH5 microscope, NIMS monitor, Cochlear instrument tray, Midas drill, 7,5 cutter burrs, 4,3,2,1.5, 0.8 course vadim burrs, major ear tray, chair with arms (KO) Implant in resource office Medical devices from this surgery are in the Medical Devices section. Medical History Medical History Date Comments Autoimmune disease Osteoporosis Cataract Social History Tobacco Use Types Packs/Day Years Used Date Smoking Tobacco: Never Passive Smoke Exposure: Never Smokeless Tobacco: Never Tobacco Cessation:Counseling Given: Not Answered Alcohol Use Standard Drinks/Week Comments Yes 0 (1 standard drink = 0.6 oz pur e alcohol) AUDIT-C Answer Date Recorded Q1: How often do you have a drink containing alc ohol? Monthly or less 05/16/2025 Q2: How many drinks containi ng alcohol do you have on a typical day when you are drinking? 1 or 2 05/16/2025 Q3: How often do you have si x or more drinks on one occasion? Never 05/16/2025 Personal Safety Answer Date Recorded Have you ever been in or are you currently in a harmful physical or emotional relationship or is someone making you feel afraid or unsafe? Denies 05/17/2025 Sex and Gender Information Value Date Recorded Sex Assigned at Not on file Legal Sex Male 9:08 AM CDT Gender Identity Not on file Sexual Orientation Not on file Obstetrics History Last Filed Vital Signs Vital Sign Reading Time Taken Comments Blood Pressure 133/96 05/17/2025 11:45 AM CDT Pulse 88 05/17/2025 11:45 AM CDT Temperature 36.3 C (97.4 F) 05/17/2025 9:45 AM CDT Respiratory Rate 22 05/17/2025 11:45 AM CDT Oxygen Saturation 94% 05/17/2025 11:45 AM CDT Inhaled Oxygen Concentration - - Weight 75.8 kg (167 lb) 05/17/2025 6:55 AM CDT Height 177.8 cm (5' 10) 05/17/2025 6:55 AM CDT Body Mass Index 23.96 05/17/2025 6:55 AM CDT Plan of Treatment Health Maintenance Due Date Last Done Comments Depression Screening 1941 Hepatitis B Screening 12/12/1959 Zoster Vaccine (1 of 2) 12/12/1991 Well Visit 65+ 2006 Influenza Vaccine (#1) 2025 8, 08/06/2017, 08/24/2013, Additional history exists Fall Risk Assessment 05/17/2026 05/17/2025 DTaP/Tdap/Td Vaccine (4 - Td or Tdap) 05/19/2028 05/19/2018, 09/21/2012, 04/14/2012, Additional history exists Pneumococcal vaccine 65+ Completed 015, 09/24/2012, 08/27/2009, Additional history exists Medical Devices Implanted Type Area Discharging Machine Operator Device Identifier Shelf Expiration Date Model / Serial / Lot [employer] Implant Cochlear Hires Ultra Hifocus 3d Mid Mikayla Electrode Ci-1601-04 - [id number] - [id number] Implanted:Qty: 1 on 05/17/2025 by Shailesh Williamson MD at [facility] Right: Cochlea [employer] 01/19/2028 CI-1601-04 / [id number] / [id number] Procedures Procedure Name Priority Date/Time Associated Diagnosis Comments XR SKULL LESS THAN 4 VIEWS IP Routine 05/17/2025 9:36 AM CDT NE AN PROCEDURE PLACEHOLDER Routine 05/17/2025 8:19 AM CDT NE AN ELECTIVE SUPRAGLOTTIC AIRWAY Routine 05/17/2025 8:19 AM CDT NE COCHLEAR DEVICE IMPLANTATION W/WO MASTOIDECTOMY 05/17/2025 8:02 AM CDT Sensorineural hearing loss (SNHL) of both ears BLOOD SMEAR REVIEW STAT 05/17/2025 7: 11 AM CDT IMMATURE PLATELET FRACTION STAT 05/17/2025 7:11 AM CDT DIFFERENTIAL AUTO STAT 05/17/2025 7:1 1 AM CDT CBC WITH AUTO DIFFERENTIAL STAT 05/17/2025 7:11 AM CDT from Last 3 Months Results * XR Skull Less than 4 Views (05/17/2025 9:36 AM CDT) Anatomical Region Laterality Modality Head and Neck N/A Computed Radiogr aphy 05/17/2025 9:41 AM CDT Impressions 05/17/2025 9:41 AM CDT Single intraoperative radiograph of the skull was obtained. There has been interval placement of a right cochlear implant. The visualized hardware is intact. Electronically signed by: Colt Brock M.D. Narrative 05/17/2025 9:41 AM CDT XR SKULL LESS THAN 4 VIEWS: 05/17/2025 9:25 AM CLINICAL INDICATION: cochlear implant. COMPARISON: CT temporal bones dated 01/24/2025. Procedure Note Colt Brock MD - 05/17/2025 XR SKULL LESS THAN 4 VIEWS: 05/17/2025 9:25 AM CLINICAL INDICATION: cochlear implant. COMPARISON: CT temporal bones dated 01/24/2025. IMPRESSION: Single intraoperative radiograph of the skull was obtained. There has been interval placement of a right cochlear implant. The visualized hardware is intact. Electronically signed by: Colt Brock M.D. Result [facility] Shailesh Williamson MD IMG XR PROCEDURES Final Re sult * NE AN ELECTIVE SUPRAGLOTTIC AIRWAY, NE AN PROCEDURE PLACEHOLDER (05/17/2025 8:19 AM CDT) Narrative Dima Rand CRNA - 05/17/2025 8:19 AM CDT Dima Rand CRNA 05/17/2025 8:50 AM Airway Patient location: OR Urgency: elective Indications for airway management: anesthesia Difficult airway: no Staff: Supervising provider: Crissy Montilla MD Placed by: EDGE CUTTING MACHINE OPERATOR: Acacia Bosch CRNA Emergent airway documentation: Risks and benefits discussed: yes Consent obtained: yes Consent given by: patient Airway prep: Preoxygenated: yes Patient position: sniffing Mask difficulty assessment: 1 - vent by mask Sedation level during airway: GA Final airway details: Final airway type: supraglottic airway Final supraglottic airway: unique SGA size: 4 Number of attempts: 1 Ventilation between attempts: supraglottic airway Additional comments: LMA inserted atraumatically Result [facility] Crissy Montilla MD ANESTHESIA ORDERABLES Edited Res ult - Final * (ABNORMAL) Immature platelet fraction (05/17/2025 7:11 AM CDT) IPF 11.5(H) 1.6 - 10.1 % Blood 05/17/2025 7:11 AM CDT 05/17/2025 7:18 AM CDT Result [facility] Crissy Montilla MD LAB BLOOD ORDERABLES Final Resul t [facility] [address] Department of Laboratories [place], [place] [id number] * (ABNORMAL) Blood smear review (05/17/2025 7:11 AM CDT) RBC morphology Normal Platelet estimate Decreased(A ) [facility] Morphology scrn See Comment [facility] Comment:PLT: Automated count confirmed by smear review. Platelet morphology normal. Blood 05/17/2025 7:11 AM CDT 05/17/2025 7:18 AM CDT us Crissy Montilla MD LAB BLOOD ORDERABLES Final Resul t [facility] [address] Department [place] [address] * Differential, auto (05/17/2025 7:11 AM CDT) Pathologist [facility] Neutrophil abs 2.78 1.50 - 6.50 K/cumm Imm gran abs 0.04 0.00 - 0.10 K/cumm [facility] Lymphocyte abs 1.60 0.80 - 3.30 K/cumm [facility] Monocyte abs 0.76 0.20 - 0.80 K/cumm [facility] Eosinophil abs 0.06 0.00 - 0.50 K/cumm [facility] Basophil abs 0.05 0.00 - 0.10 K/cumm [facility] Neutrophil pct 52.6 % [facility] Comment: Interpretive Data Percent cell count reference ranges are not reported, since discordance with absolute values may lead to misinterpretation of CBC data. Current Interpretive Data was last revised on 2017. Imm gran pct 0.8 % [facility] Comment: Interpretive Data Percent cell count reference ranges are not reported, since discordance with absolute values may lead to misinterpretation of CBC data. Current Interpretive Data was last revised on 2017. Lymphocyte pct 30.2 % [facility] Comment: Interpretive Data Percent cell count reference ranges are not reported, since discordance with absolute values may lead to misinterpretation of CBC data. Current Interpretive Data was last revised on 2017. Monocyte pct 14.4 % [facility] Comment: Interpretive Data Percent cell count reference ranges are not reported, since discordance with absolute values may lead to misinterpretation of CBC data. Current Interpretive Data was last revised on 2017. Eosinophil pct 1.1 % [facility] Comment: Interpretive Data Percent cell count reference ranges are not reported, since discordance with absolute values may lead to misinterpretation of CBC data. Current Interpretive Data was last revised on 2017. Basophil pct 0.9 % [facility] Comment: Interpretive Data Percent cell count reference ranges are not reported, since discordance with absolute values may lead to misinterpretation of CBC data. Current Interpretive Data was last revised on 2017. Blood 05/17/2025 7:11 AM CDT 05/17/2025 7:18 AM CDT us Crissy Montilla MD LAB BLOOD ORDERABLES Final Resul t [facility] [address] Department [place] [address] * (ABNORMAL) CBC with auto differential (05/17/2025 7:11 AM CDT) WBC 5.25 3.80 - 9.90 K/cumm Hgb 18.9(H) 13.0 - 17.5 g/dL [facility] Hct 54.5(H) 38.9 - 50.3 % [facility] Plt 38(C) 150 - 400 K/cumm [facility] Comment:No clot detected in sample. Platelet count confirmed by additional testing. Critical platelet count threshold determined by patient location: Outpatient:<50 K/cumm , Inpatient adults:<20 K/cumm , Inpatient pediatric:<25 K/cumm, BMT service:<10 K/cumm MPV 12.9(H) 9.1 - 12.3 fL [facility] RBC 5.28 4.30 - 5.80 M/cumm [facility] MCV 103.2(H) 81.3 - 96.4 fL [facility] MCH 35.8(H) 27.1 - 33.3 pg [facility] MCHC 34.7 32.3 - 35.7 g/dL [facility] RDW CV 19.6(H) 11.1 - 14.9 % [facility] RDW SD 73.7(H) 35.7 - 48.1 fL [facility] NRBC abs 0.00 0.00 - 0.01 K/cumm [facility] Blood 05/17/2025 7:11 AM CDT 05/17/2025 7:18 AM CDT us Crissy Montilla MD LAB BLOOD ORDERABLES Final Resul t [facility] [address] Department [place] [address] from Last 3 Months Insurance MEDICARE [facility] MEDICARE AARP Care Teams Bar Examiner Relationship Specialty Start Date End Date Nikolay Ho DO PCP - General Internal Medicine 03/21/24
[2025-06-16 12:20] VITALS: BP 155/84; PULSE 97; RESP 20; TEMP 36.4; O2SAT 96
--- NOTE | 2025-06-16 14:05 | ED.BACK ---
HPI - Back Pain/Injury General Chief Complaint: Back Pain/Injury <Siomara Jaffe PA-C - Last Filed: 06/16/25 17:24> Stated Complaint: back pain <Siomara Jfafe PA-C - Last Filed: 06/16/25 17:24> Time Seen by Provider: 06/16/25 14:05 <Siomara Jaffe PA-C - Last Filed: 06/16/25 17:24> Focused HPI: This is an 84-year-old male that presents to the emergency department for low back pain. Reports history of chronic low back problems. No recent injuries or trauma. He reports ongoing since having surgery for his cochlear implant. Sometimes the pain radiates into the hips. Worse with movement. He has been taking prescribed Emmonak with some relief. Reports weakness in his lower extremities, which is chronic. GENERAL: Elderly, well-nourished, and in no acute distress. HEAD: Normocephalic, atraumatic. CHEST: Clear to auscultation. ?No respiratory distress. HEART: Regular rate and rhythm.? NEURO: ?Alert and oriented x3. Patient screened in triage and initial orders placed.? ?Additional care and disposition to be based upon?diagnostic testing and treatment. <Siomara Jaffe PA-C - Last Filed: 06/16/25 17:24> History of Present Illness HPI Narrative: Patient is an 84-year-old male who presents ER with back pain. Ongoing for several weeks. He was on a bus writing back from a cochlear implant surgery when he developed sudden onset back pain. He has been taken oxycodone with minimal improvement. No issues with constipation. No lower extremity numbness or weakness. 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 <Robinson Richey MD - Last Filed: 06/16/25 17:12> Related Data Allergies/Adverse Reactions: Allergies Allergy/AdvReac Type Severity Reaction Status Date / Time No Known Allergies Allergy Verified 06/16/25 15:11 <Siomara Jaffe PA-C - Last Filed: 06/16/25 17:24> Review of Systems Review of Systems: All systems reviewed & are unremarkable except as noted in HPI and below <Siomara Jaffe PA-C - Last Filed: 06/16/25 17:24> [facility] Past Medical History Medical History: Medical History Paralysis of both lower limbs Male hypogonadism Complete paraplegia Chronic respiratory failure with hypoxia Long-term current use of testosterone cypionate Glaucoma Hearing loss Thrombocytopenia 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 He tried CBD without benefit in the recent past. Lives at [place]. Full code. He nominates his daughter and son to be the individuals would make medical decisions for him if he is unable. Smoking status: Never smoker Alcohol intake: never Substance use: never Substance use type: does not use Do You Feel Safe in your Home?: Yes Lack of Transportation: YES Lack of Food: Never True Current Housing: I Have Housing Concerned About Future Housing: No Difficulty Paying Gas/Electric Bills: No Difficulty Paying for Meds: No Currently Unemployed: No Education: Bachelor's Degree Difficulty w/ Childcare or Family Care: No Living arrangements: assisted living Additional living arrangements comments: [place] Occupation/Education: retired Spiritual care concerns: No <Siomara Jaffe PA-C - Last Filed: 06/16/25 17:24> Exam Narrative: GENERAL: Well-appearing, well-nourished, and in no acute distress. HEAD: Normocephalic, atraumatic. ENT: Mucous membranes moist. CHEST: Clear to auscultation. No respiratory distress. HEART: Regular rate and rhythm. Normal peripheral pulses. Back: Tenderness AT11-L1 area. No bruising or step-offs. EXTREMITIES: No deformity or lower extremities. Atrophy of hand/ arm muscles. SKIN: Warm, dry, no rash. NEURO: Alert and oriented x3. PSYCH: Normal mood and affect. <Robinson Richey MD - Last Filed: 06/16/25 17:12> Course Course Emergency Course: Acute on chronic fracture of T11. Discussed with neuro surgery and patient would likely benefit from TLSO brace when up and around. I have contacted [facility] and they will come out to fit the patient. Will fax over a prescription for the brace. D/c home. <Robinson Richey MD - Last Filed: 06/16/25 17:12> Vital Signs Vital signs: Vital Signs Temperature 97.6 F 06/16/25 12:20 Pulse Rate 97 06/16/25 12:20 Respiratory Rate 20 06/16/25 12:20 Blood Pressure 155/84 H 06/16/25 12:20 Pulse Oximetry 96 06/16/25 12:20 Temperature 97.6 F 06/16/25 12:20 Pulse Rate 97 06/16/25 12:20 Respiratory Rate 20 06/16/25 12:20 Blood Pressure 155/84 H 06/16/25 12:20 Pulse Oximetry 96 06/16/25 12:20 <Siomara Jaffe PA-C - Last Filed: 06/16/25 17:24> Vital Signs Temperature 97.6 F 06/16/25 12:20 Pulse Rate 97 06/16/25 12:20 Respiratory Rate 20 06/16/25 12:20 Blood Pressure 155/84 H 06/16/25 12:20 Pulse Oximetry 96 06/16/25 12:20 Temperature 97.6 F 06/16/25 12:20 Pulse Rate 97 06/16/25 12:20 Respiratory Rate 20 06/16/25 12:20 Blood Pressure 155/84 H 06/16/25 12:20 Pulse Oximetry 96 06/16/25 12:20 <Robinson Richey MD - Last Filed: 06/16/25 17:12> MDM - Back Pain/Injury Lab Data Labs: Lab Results 06/16/25 Range/Units 14:32 Urine Color Dark yellow (Yellow) Urine Appearance Clear (Clear) Urine pH 6.0 (5.0-9.0) Ur Specific [place] 1.018 (1.001-1.035) Urine Protein Trace (Negative) mg/dL Urine Glucose (UA) Negative (Negative) mg/dL Urine Ketones Negative (Negative) mg/dL Ur Blood (Man) Trace (Negative) Urine Nitrate Negative (Negative) Urine Bilirubin 1+ H (Negative) Urine Urobilinogen 4.0 H (<2.0) mg/dL Leukocyte Esterase Rfl Trace H (Negative) ELÍAS/UL Urine RBC 6-10 H (0-2) /hpf Urine WBC 0-5 (0-3) /hpf Ur Squamous Epith Cells None seen (Few) /hpf Urine Bacteria None seen /hpf Urine Casts 0-2 <Siomara Jaffe PA-C - Last Filed: 06/16/25 17:24> Lab Results 06/16/25 Range/Units 14:32 Urine Color Dark yellow (Yellow) Urine Appearance Clear (Clear) Urine pH 6.0 (5.0-9.0) Ur Specific [place] 1.018 (1.001-1.035) Urine Protein Trace (Negative) mg/dL Urine Glucose (UA) Negative (Negative) mg/dL Urine Ketones Negative (Negative) mg/dL Ur Blood (Man) Trace (Negative) Urine Nitrate Negative (Negative) Urine Bilirubin 1+ H (Negative) Urine Urobilinogen 4.0 H (<2.0) mg/dL Leukocyte Esterase Rfl Trace H (Negative) ELÍAS/UL Urine RBC 6-10 H (0-2) /hpf Urine WBC 0-5 (0-3) /hpf Ur Squamous Epith Cells None seen (Few) /hpf Urine Bacteria None seen /hpf Urine Casts 0-2 <Robinson Richey MD - Last Filed: 06/16/25 17:12> Imaging Data Radiologist's impression: ITS Impressions Lumbar Spine CT 06/16/25 14:47 Impression: Acute on chronic fracture suspected of T11, MRI is suggested to assess for bony edema. Multiple additional remote appearing compression fractures. <Robinson Richey MD - Last Filed: 06/16/25 17:12> Critical Care Time Critical Care Time Critical Care Time: No <Siomara Jaffe PA-C - Last Filed: 06/16/25 17:24> Discharge Plan Discharge Clinical Impression: Closed fracture of body of thoracic vertebra <ARACELI Lynch Last Filed: 06/16/25 17:24> Patient Disposition: Home <ARACELI Lynch Last Filed: 06/16/25 17:24> Condition: Stable <ARACELI Lynch Last Filed: 06/16/25 17:24> Instructions: Vertebral Compression Fracture (ED) <ARACELI Lynch Last Filed: 06/16/25 17:24> Additional Instructions: You have a fracture of your 11 thoracic vertebrae. Wear the brace for comfort when you are up and around out of bed. Follow-up with neurosurgery for additional pain control if needed. <ARACELI Lynch Last Filed: 06/16/25 17:24> Patient Language: Yakut <ARACELI Lynch Last Filed: 06/16/25 17:24> Prescriptions: No Action albuterol sulfate 90 mcg/actuation HFA aerosol inhaler 2 puff inhalation QID PRN (Reason: shortness of breath or wheezing) Qty: 6.7 0RF (DME) Arjun Aerosol [place] Enhancer Spacer See Rx Instructions .Route Qty: 1 0RF Rx Instructions: As directed (DME) safety needles [BD Eclipse] 18 gauge x 1 1/2 needle See Rx Instructions .Route Qty: 100 1RF Rx Instructions: Use to draw up Testosterone (DME) BD Eclipse Luer-Lupis 3 mL 23 x 1 syringe See Rx Instructions .Route Qty: 50 3RF Rx Instructions: Use to inject Testosterone (DME) Portable Oxygen Concentrator See Rx Instructions .Route .MEDSUPPLY Qty: 1 0RF Rx Instructions: Use 3.5L of continuous Oxygen. (DME) Battery Pack for Portable Oxygen Concentrator See Rx Instructions .Route .MEDSUPPLY Qty: 3 0RF Rx Instructions: Use battery pack as back up if needed. (DME) Pressure Relieving Mattress See Rx Instructions .Route .MEDSUPPLY Qty: 1 0RF Rx Instructions: Use for ulcer relief triamcinolone acetonide 0.1 % cream 1 applic topical BID PRN (Reason: rash) Qty: 30 1RF testosterone cypionate [Depo-Testosterone] 200 mg/mL oil 120 mg IM WEEKLY Qty: 10 2RF alendronate 70 mg tablet 70 mg PO WEEKLY Qty: 12 0RF Rx Instructions: LAST REFILL, NEEDS APPOINTMENT furosemide 20 mg tablet 20 mg PO QAM Qty: 90 0RF Rx Instructions: LAST REFILL, NEEDS APPOINTMENT cyclobenzaprine 10 mg tablet 10 mg PO TID Qty: 20 0RF hydrocodone-acetaminophen 10-325 mg tablet 1 tablet PO Q6H PRN (Reason: Lumbar compression fracture pain) Qty: 50 0RF <Siomara Jaffe PA-C - Last Filed: 06/16/25 17:24> Follow-up/Referrals: Shaniqua Zabala MD [Physician, Neurosurgery] - 1 Week Nikolay Ho DO [Primary Care Provider, Internal Medicine] <Siomara Jaffe PA-C - Last Filed: 06/16/25 17:24>
--- OUTSIDE RECORDS SUMMARY | 2025-06-16 14:44 | XMS_ITS | Clinical Summary ---
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
--- OUTSIDE RECORDS SUMMARY | 2025-06-16 14:45 | XMS_ITS | Clinical Summary ---
Author Organization [facility] Address [address] [place] [id number] Care Team Providers Care Transit Mixer Driver Name Role Phone Nikolay Ho DO Primary Care Provider +1- [phone] Allergies No known active allergies Medications testosterone [...] Description 05/31/2025 10:00 AM CDT Procedure visit [facility] Otolaryngology [address] [facility] [address] [facility], [address] [place] [phone] Jessica Kirkpatrick CCC-A Sensorineural hearing loss, bilateral (Primary Dx); Encounter for adjustment and management of cochlear device 05/31/2025 Orders Only [facility] Otolaryngology [address] [facility], [address] [phone] Janeen Almendarez CMA 05/30/2025 Telephone [facility] Otolaryngology [address] [facility] [facility], [address] [phone] Jessica Kirkpatrick CCC-A 05/30/2025 Documentation [facility] Otolaryngology [address] [facility], [address] [place] [phone] Jessica Kirkpatrick CCC-A 05/24/2025 Documentation [facility] Otolaryngology [address] [facility] [facility], [address] [place] [phone] Jessica Kirkpatrick CCC-A 05/17/2025 8:03 AM CDT Anesthesia Event [facility] Operating Room [address] [place] [phone] Crissy Montilla MD McVey, Lynexis Parisann, CRNA 05/17/2025 7:30 AM CDT - 05/17/2025 9:45 AM CDT Surgery [facility] [address] [place] [phone] Shailesh Williamson MD Implantation Right Cochlear Device [05754 (CPT )] 05/17/2025 6:12 AM CDT - 05/17/2025 12:20 PM CDT Hospital Encounter [facility] Operating Room [facility] [place] [phone] Shailesh Williamson MD Sensorineural hearing loss (SNHL) of both ears [H90.3] (Primary Dx) Discharge Disposition: Discharge to home or self care 05/17/2025 Treatment [facility] Otolaryngology [address] [facility], [address] [place] [phone] Arely Mckay Au.D. Sensorineural hearing loss (SNHL) of both ears (Primary Dx) 04/27/2025 Telephone [facility] Pre Anesthesia Testing [address] [place] [phone] Courtney Harding from Last 3 Months Immunizations Immunization Administration Dates Next Due Pneumococcal Conjugate PCV 13 08/24/2015 Surgical History Surgery Date Site/Laterality Comments CATARACT EXTRACTION Bilateral FEMUR FRACTURE SURGERY Left EYE SURGERY Left EAR MASTOIDECTOMY W/ COCHLEA R IMPLANT W/ LANDMARK 05/17/2025 Ear/Right Procedure: Implantation Right Cochlear Device; Surgeon: Shailesh Williamson MD; Location: [facility] OPERATING [facility]; Service: Otolaryngology; Laterality: Right; [...] history exists Medical Devices Implanted Type Area Campaign Assistant Device Identifier Shelf Expiration Date Model / Serial / Lot [employer] Implant Cochlear Hires Ultra Hifocus 3d Mid Mikayla [employer]de Ci-1601-04 - [id number] - [id number] Implanted:Qty: 1 on 05/17/2025 by Shailesh Williamson MD at [facility] Right: Cochlea [employer] 01/19/2028 CI-1601-04 / [id number] / [id number] Procedures Procedure Name Priority Date/Time Associated Diagnosis Comments XR SKULL LESS THAN 4 VIEWS IP Routine 05/17/2025 9:36 AM CDT CA AN PROCEDURE PLACEHOLDER Routine 05/17/2025 8:19 AM CDT CA AN ELECTIVE SUPRAGLOTTIC AIRWAY Routine 05/17/2025 8:19 AM CDT CA COCHLEAR DEVICE IMPLANTATION W/WO MASTOIDECTOMY 05/17/2025 8:02 [...] Electronically signed by: Colt Brock M.D. Result [facility] Shailesh Williamson MD IMG XR PROCEDURES Final Re sult * CA AN ELECTIVE SUPRAGLOTTIC AIRWAY, CA AN PROCEDURE PLACEHOLDER (05/17/2025 8:19 AM CDT) Narrative Dima Rand CRNA - 05/17/2025 8:19 AM CDT Dima Rand CRNA 05/17/2025 8:50 AM Airway Patient location: OR Urgency: elective Indications for airway management: anesthesia Difficult airway: no Staff: Supervising provider: Crissy Montilla MD Placed by: ZIPPER IRONER: Acacia Bosch CRNA Emergent airway documentation: Risks [...] airway Additional comments: LMA inserted atraumatically Result [facility] Crissy Montilla MD ANESTHESIA ORDERABLES Edited Res ult - Final * (ABNORMAL) Immature platelet fraction (05/17/2025 7:11 AM CDT) IPF 11.5(H) 1.6 - 10.1 % Blood 05/17/2025 7:11 AM CDT 05/17/2025 7:18 AM CDT Result [facility] Crissy Montilla MD LAB BLOOD ORDERABLES Final Resul t [facility] [address] Department of Laboratories [place], [place] [phone] * (ABNORMAL) Blood smear review (05/17/2025 7:11 AM CDT) RBC morphology Normal Platelet estimate Decreased(A ) [facility] Morphology scrn See Comment [facility] Comment:PLT: Automated count confirmed by smear review. Platelet morphology normal. Blood 05/17/2025 7:11 AM CDT 05/17/2025 7:18 AM CDT us Crissy Montilla MD LAB BLOOD ORDERABLES Final Resul t [facility] [address] Department [place] [address] * Differential, auto (05/17/2025 7:11 AM CDT) Pathologist [facility] Neutrophil abs 2.78 1.50 - 6.50 K/cumm Imm gran abs 0.04 0.00 - 0.10 K/cumm [facility] Lymphocyte abs 1.60 0.80 - 3.30 K/cumm [facility] Monocyte abs 0.76 0.20 - 0.80 K/cumm [facility] Eosinophil abs 0.06 0.00 - 0.50 K/cumm [facility] Basophil abs 0.05 0.00 - 0.10 K/cumm [facility] Neutrophil pct 52.6 % [facility] Comment: Interpretive Data Percent cell count reference ranges are not reported, since discordance with absolute values may lead to misinterpretation of CBC data. Current Interpretive Data was last revised on 2017. Imm gran pct 0.8 % [facility] Comment: Interpretive Data Percent cell count reference ranges are not reported, since discordance with absolute values may lead to misinterpretation of CBC data. Current Interpretive Data was last revised on 2017. Lymphocyte pct 30.2 % [facility] Comment: Interpretive Data Percent cell count reference ranges are not reported, since discordance with absolute values may lead to misinterpretation of CBC data. Current Interpretive Data was last revised on 2017. Monocyte pct 14.4 % [facility] Comment: Interpretive Data Percent cell count reference ranges are not reported, since discordance with absolute values may lead to misinterpretation of CBC data. Current Interpretive Data was last revised on 2017. Eosinophil pct 1.1 % [facility] Comment: Interpretive Data Percent cell count reference ranges are not reported, since discordance with absolute values may lead to misinterpretation of CBC data. Current Interpretive Data was last revised on 2017. Basophil pct 0.9 % [facility] Comment: Interpretive Data Percent cell count reference ranges are not reported, since discordance with absolute values may lead to misinterpretation of CBC data. Current Interpretive Data was last revised on 2017. Blood 05/17/2025 7:11 AM CDT 05/17/2025 7:18 AM CDT us Crissy Montilla MD LAB BLOOD ORDERABLES Final Resul t [facility] [address] Department [place] [address] * (ABNORMAL) CBC with auto differential (05/17/2025 7:11 AM CDT) WBC 5.25 3.80 - 9.90 K/cumm Hgb 18.9(H) 13.0 - 17.5 g/dL [facility] Hct 54.5(H) 38.9 - 50.3 % [facility] Plt 38(C) 150 - 400 K/cumm [facility] Comment:No clot detected in sample. Platelet count confirmed by additional testing. Critical platelet count threshold determined by patient location: Outpatient:<50 K/cumm , Inpatient adults:<20 K/cumm , Inpatient pediatric:<25 K/cumm, BMT service:<10 K/cumm MPV 12.9(H) 9.1 - 12.3 fL [facility] RBC 5.28 4.30 - 5.80 M/cumm [facility] MCV 103.2(H) 81.3 - 96.4 fL [facility] MCH 35.8(H) 27.1 - 33.3 pg [facility] MCHC 34.7 32.3 - 35.7 g/dL [facility] RDW CV 19.6(H) 11.1 - 14.9 % [facility] RDW SD 73.7(H) 35.7 - 48.1 fL [facility] NRBC abs 0.00 0.00 - 0.01 K/cumm [facility] Blood 05/17/2025 7:11 AM CDT 05/17/2025 7:18 AM CDT us Crissy Montilla MD LAB BLOOD ORDERABLES Final Resul t [facility] [address] Department [place] [address] from Last 3 Months Insurance MEDICARE [facility] MEDICARE AARP Care Teams Transit Mixer Driver Relationship Specialty Start Date End Date Nikolay Ho DO PCP - General Internal Medicine 03/21/24
[2025-06-16 14:46] LABS: Add Urine Microscopic? YES; Appearance Urine Clear (Clear); Glucose Urine UA Negative (Negative); Leukocyte Esterase Ur Trace LEU/UL (Negative); Nitrate Urine Negative (Negative); Non Pathogenic Casts 0-2; Specific Grav Ur 1.018 (1.001-1.035)
--- NOTE | 2025-06-16 15:36 | ED_ITS ---
HPI - Back Pain/Injury General Chief Complaint: Back Pain/Injury Stated Complaint: back pain Time Seen by Provider: 06/16/25 14:05 History of Present Illness HPI Narrative: Patient is an 84-year-old male who presents ER with back pain. Ongoing for several weeks. He was on a bus writing back from a cochlear implant surgery when he developed sudden onset back pain. He has been taken oxycodone with minimal improvement. No issues with constipation. No lower extremity numbness or weakness. 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 Related Data Allergies Allergy/AdvReac Type Severity Reaction Status Date / Time No Known Allergies Allergy Verified 06/16/25 15:11 Review of Systems Review of Systems: All systems reviewed & are unremarkable except as noted in HPI and below Constitutional: Constitutional: Reports no additional constitutional complaints Musculoskeletal: Musculoskeletal: Reports no additional musculoskeletal complaints Neurologic: Reports system reviewed and no additional complaints, except as documented PMFSH Past Medical History Medical History Paralysis of both lower limbs Male hypogonadism Complete paraplegia Chronic respiratory failure with hypoxia Long-term current use of testosterone cypionate Glaucoma Hearing loss Thrombocytopenia 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 He tried CBD without benefit in the recent past. Lives at [place]. Full code. He nominates his daughter and son to be the individuals would make medical decisions for him if he is unable. Smoking status: Never smoker Alcohol intake: never Substance use: never Substance use type: does not use Do You Feel Safe in your Home?: Yes Lack of Transportation: YES Lack of Food: Never True Current Housing: I Have Housing Concerned About Future Housing: No Difficulty Paying Gas/Electric Bills: No Difficulty Paying for Meds: No Currently Unemployed: No Education: Bachelor's Degree Difficulty w/ Childcare or Family Care: No Living arrangements: assisted living Additional living arrangements comments: [place] Occupation/Education: retired Spiritual care concerns: No Exam Narrative: GENERAL: Well-appearing, well-nourished, and in no acute distress. HEAD: Normocephalic, atraumatic. ENT: Mucous membranes moist. CHEST: Clear to auscultation. No respiratory distress. HEART: Regular rate and rhythm. Normal peripheral pulses. Back: Tenderness AT11-L1 area. No bruising or step-offs. EXTREMITIES: No deformity or lower extremities. Atrophy of hand/ arm muscles. SKIN: Warm, dry, no rash. NEURO: Alert and oriented x3. PSYCH: Normal mood and affect. Course Course Emergency Course: Acute on chronic fracture of T11. Discussed with neuro surgery and patient would likely benefit from TLSO brace when up and around. I have contacted [facility] and they will come out to fit the patient. Will fax over a prescription for the brace. Vital Signs Vital signs: Vital Signs Temperature 97.6 F 06/16/25 12:20 Pulse Rate 97 06/16/25 12:20 Respiratory Rate 20 06/16/25 12:20 Blood Pressure 155/84 H 06/16/25 12:20 Pulse Oximetry 96 06/16/25 12:20 Temperature 97.6 F 06/16/25 12:20 Pulse Rate 97 06/16/25 12:20 Respiratory Rate 20 06/16/25 12:20 Blood Pressure 155/84 H 06/16/25 12:20 Pulse Oximetry 96 06/16/25 12:20 MDM - Back Pain/Injury Lab Data Labs: Lab Results 06/16/25 Range/Units 14:32 Urine Color Dark yellow (Yellow) Urine Appearance Clear (Clear) Urine pH 6.0 (5.0-9.0) Ur Specific [place] 1.018 (1.001-1.035) Urine Protein Trace (Negative) mg/dL Urine Glucose (UA) Negative (Negative) mg/dL Urine Ketones Negative (Negative) mg/dL Ur Blood (Man) Trace (Negative) Urine Nitrate Negative (Negative) Urine Bilirubin 1+ H (Negative) Urine Urobilinogen 4.0 H (<2.0) mg/dL Leukocyte Esterase Rfl Trace H (Negative) ELÍAS/UL Urine RBC 6-10 H (0-2) /hpf Urine WBC 0-5 (0-3) /hpf Ur Squamous Epith Cells None seen (Few) /hpf Urine Bacteria None seen /hpf Urine Casts 0-2 Discharge Plan Discharge Clinical Impression: Closed fracture of body of thoracic vertebra Patient Disposition: Home Condition: Stable Instructions: Antibiotic Form Patient Language: Burmese Prescriptions: No Action albuterol sulfate 90 mcg/actuation HFA aerosol inhaler 2 puff inhalation QID PRN (Reason: shortness of breath or wheezing) Qty: 6.7 0RF (DME) Arjun Aerosol [place] Enhancer Spacer See Rx Instructions .Route Qty: 1 0RF Rx Instructions: As directed (DME) safety needles [BD Eclipse] 18 gauge x 1 1/2 needle See Rx Instructions .Route Qty: 100 1RF Rx Instructions: Use to draw up Testosterone (DME) BD Eclipse Luer-Lupis 3 mL 23 x 1 syringe See Rx Instructions .Route Qty: 50 3RF Rx Instructions: Use to inject Testosterone (DME) Portable Oxygen Concentrator See Rx Instructions .Route .MEDSUPPLY Qty: 1 0RF Rx Instructions: Use 3.5L of continuous Oxygen. (DME) Battery Pack for Portable Oxygen Concentrator See Rx Instructions .Route .MEDSUPPLY Qty: 3 0RF Rx Instructions: Use battery pack as back up if needed. (DME) Pressure Relieving Mattress See Rx Instructions .Route .MEDSUPPLY Qty: 1 0RF Rx Instructions: Use for ulcer relief triamcinolone acetonide 0.1 % cream 1 applic topical BID PRN (Reason: rash) Qty: 30 1RF testosterone cypionate [Depo-Testosterone] 200 mg/mL oil 120 mg IM WEEKLY Qty: 10 2RF alendronate 70 mg tablet 70 mg PO WEEKLY Qty: 12 0RF Rx Instructions: LAST REFILL, NEEDS APPOINTMENT furosemide 20 mg tablet 20 mg PO QAM Qty: 90 0RF Rx Instructions: LAST REFILL, NEEDS APPOINTMENT cyclobenzaprine 10 mg tablet 10 mg PO TID Qty: 20 0RF hydrocodone-acetaminophen 10-325 mg tablet 1 tablet PO Q6H PRN (Reason: Lumbar compression fracture pain) Qty: 50 0RF Follow-up/Referrals: Nikolay Ho DO [Primary Care Provider, Internal Medicine]
[2025-06-16 16:00] VITALS: BP 168/84; PULSE 102; RESP 20; O2SAT 95
[2025-06-16 18:47] VITALS: BP 156/88; PULSE 82; RESP 18; TEMP 36.8; O2SAT 94
== END 2025-06-16 19:08 ==
PROVIDERS: Physician Assistant; Emergency Provider Emergency Medicine; PCP Internal Medicine
DX: M84.48XA Pathological fracture, other site, initial encounter for fracture (principal); J96.11 Chronic respiratory failure with hypoxia; G72.41 Inclusion body myositis [IBM]; G82.21 Paraplegia, complete; G89.29 Other chronic pain; H40.9 Unspecified glaucoma; M35.00 Sjogren syndrome, unspecified; Z99.3 Dependence on wheelchair
CPT/HCPCS: 72131; 81001; 99284